=== PATIENT | male | born 1965 | race Caucasian/White ===

== ENCOUNTER 2017-03-13 14:36 | Outpatient (RCR) | payer OTHER ==
--- OUTSIDE RECORDS SUMMARY | 2016-12-19 08:34 | XMS REPORT | Continuity of Care Document ---
Author Author [facility] Organization [facility] Address Unknown Phone Unavailable Care Team Providers Care Front Desk Supervisor Name Role Phone SHANNON MACIAS MD PCP Insurance Providers Payer Name Policy Number Subscriber Name Relationship [employer] Harper Preferred [id number] Stas Mann 18 Self / Same As Patient Problems No problem information available. Medications No medication information available. Social History Social History Problem Response Recorded Date/Time Recent Foreign Travel No 01/06/2016 8:45am Hospital Discharge Instructions No hospital discharge instructions. Plan of Care Prescriptions See Medication Section Functional Status No functional status results. Allergies, Adverse Reactions, Alerts No allergy information available. Immunizations No immunization records. Vital Signs No known vital signs results. Results Microbiology Results Procedure Source Result Collection Date/Time Result Date/Time Anaerobic Culture Tissue, Back No anaerobes isolated 01/06/2016 9:25am 06/2016 10:31am Wound Culture Tissue, Back CORYNEBACTERIUM STRIATUM 01/06/2016 9:25am 01/14 2:28pm Procedures No known history of procedures. Encounters Encounter Location Arrival/Admit Date Discharge/Depart Date Attending Provider Discharged Recurring [facility] 03/30/16 8:44am 11:59pm NICHOL COTTER MD
== END 2017-03-19 | disposition home or self-care (01) ==
LOC: WOUNDCARE 14:36
PROVIDERS: ATTEND Surgery
DX: L98.492 Non-pressure chronic ulcer of skin of other sites with fat layer exposed (principal); E11.622 Type 2 diabetes mellitus with other skin ulcer; L59.9 Disorder of the skin and subcutaneous tissue related to radiation, unspecified; T66.XXXD Radiation sickness, unspecified, subsequent encounter
CPT/HCPCS: 11042; 15271; 87070; 87075; 87077; 87186; 87205; 99212

== ENCOUNTER 2017-05-01 12:30 | Outpatient (RCR) | payer OTHER | END 2017-05-01 16:00 | disposition home or self-care (01) | LOC: WOUNDCARE 12:30 | PROVIDERS: ATTEND Surgery | DX: L98.492 Non-pressure chronic ulcer of skin of other sites with fat layer exposed (principal); T66.XXXD Radiation sickness, unspecified, subsequent encounter | CPT/HCPCS: 11042; 99212 ==

== ENCOUNTER → 2020-01-03 | Outpatient (REF) ==
--- NOTE | 2020-01-03 13:19 | Diagnostic Imaging Report ---
EXAMINATION: Chest, PA and lateral views. INDICATION: Positive TB skin test. COMPARISON: None available. FINDINGS: The lungs are clear and the pulmonary vasculature is normal. No pneumothorax or pleural effusion. Heart size is normal. There is mild prominence along the right paratracheal stripe. Mediastinal contours are otherwise normal. There is mild tortuosity of the thoracic aorta. No acute osseous abnormality is identified. Multilevel degenerative changes involve the spine. IMPRESSION: No radiographic evidence of active tuberculosis. There is mild prominence along the right paratracheal stripe. This may be related to a prominent azygos vein or confluence of shadows and is difficult to assess for stability, without priors for comparison. This can be further evaluated with short interval follow-up or dedicated chest CT, as clinically indicated. Dictated by: Dictated on workstation # [id number]
== END | disposition home or self-care (01) ==
LOC: OCC 11:14
PROVIDERS: ATTEND Nurse Practitioner Family
CPT/HCPCS: 71046

== ENCOUNTER → 2020-12-24 | Outpatient (CLI) | payer BC | LOC: WOUNDCARE 10:06 | PROVIDERS: ATTEND Surgery | DX: L98.492 Non-pressure chronic ulcer of skin of other sites with fat layer exposed (principal); L59.9 Disorder of the skin and subcutaneous tissue related to radiation, unspecified; E11.622 Type 2 diabetes mellitus with other skin ulcer; T65.222D Toxic effect of tobacco cigarettes, intentional self-harm, subsequent encounter; T66.XXXD Radiation sickness, unspecified, subsequent encounter | CPT/HCPCS: A6197; G0463; 99213 ==

== ENCOUNTER → 2020-12-30 | Outpatient (CLI) | payer BC | LOC: WOUNDCARE 11:01 | PROVIDERS: ATTEND Surgery | DX: L98.492 Non-pressure chronic ulcer of skin of other sites with fat layer exposed (principal); I96 Gangrene, not elsewhere classified; L59.9 Disorder of the skin and subcutaneous tissue related to radiation, unspecified; E11.622 Type 2 diabetes mellitus with other skin ulcer; T65.222A Toxic effect of tobacco cigarettes, intentional self-harm, initial encounter | CPT/HCPCS: 99212 ==

== ENCOUNTER → 2021-01-06 | Outpatient (CLI) | payer BC | LOC: WOUNDCARE 10:58 | PROVIDERS: ATTEND Surgery | DX: L98.492 Non-pressure chronic ulcer of skin of other sites with fat layer exposed (principal); I96 Gangrene, not elsewhere classified; E11.622 Type 2 diabetes mellitus with other skin ulcer; T65.222D Toxic effect of tobacco cigarettes, intentional self-harm, subsequent encounter; T66.XXXD Radiation sickness, unspecified, subsequent encounter | CPT/HCPCS: 11042; G0463 ==

== ENCOUNTER → 2021-01-12 | Outpatient (CLI) | payer BC | LOC: WOUNDCARE 11:06 | PROVIDERS: ATTEND Surgery | DX: L98.492 Non-pressure chronic ulcer of skin of other sites with fat layer exposed (principal); I96 Gangrene, not elsewhere classified; E11.622 Type 2 diabetes mellitus with other skin ulcer; T65.222A Toxic effect of tobacco cigarettes, intentional self-harm, initial encounter; T66.XXXD Radiation sickness, unspecified, subsequent encounter | CPT/HCPCS: A6260; G0463; 99213 ==

== ENCOUNTER → 2021-01-20 | Outpatient (CLI) | payer BC | LOC: WOUNDCARE 09:59 | PROVIDERS: ATTEND Surgery | DX: L98.492 Non-pressure chronic ulcer of skin of other sites with fat layer exposed (principal); I96 Gangrene, not elsewhere classified; L59.9 Disorder of the skin and subcutaneous tissue related to radiation, unspecified; E11.622 Type 2 diabetes mellitus with other skin ulcer; T65.222D Toxic effect of tobacco cigarettes, intentional self-harm, subsequent encounter | CPT/HCPCS: 99212 ==

== ENCOUNTER → 2021-01-27 | Outpatient (CLI) | payer BC | LOC: WOUNDCARE 10:55 | PROVIDERS: ATTEND Surgery | DX: L98.492 Non-pressure chronic ulcer of skin of other sites with fat layer exposed (principal); E11.622 Type 2 diabetes mellitus with other skin ulcer; T65.222A Toxic effect of tobacco cigarettes, intentional self-harm, initial encounter; T66.XXXD Radiation sickness, unspecified, subsequent encounter | CPT/HCPCS: 99212 ==

== ENCOUNTER → 2021-02-03 | Outpatient (CLI) | payer BC | LOC: WOUNDCARE 11:05 | PROVIDERS: ATTEND Surgery | DX: L98.492 Non-pressure chronic ulcer of skin of other sites with fat layer exposed (principal); L59.9 Disorder of the skin and subcutaneous tissue related to radiation, unspecified; I96 Gangrene, not elsewhere classified; E11.622 Type 2 diabetes mellitus with other skin ulcer; T65.222D Toxic effect of tobacco cigarettes, intentional self-harm, subsequent encounter | CPT/HCPCS: 99213 ==

== ENCOUNTER → 2021-02-17 | Outpatient (CLI) | payer BC | LOC: WOUNDCARE 10:59 | PROVIDERS: ATTEND Surgery | DX: L98.492 Non-pressure chronic ulcer of skin of other sites with fat layer exposed (principal); I96 Gangrene, not elsewhere classified; T66.XXXD Radiation sickness, unspecified, subsequent encounter; E11.622 Type 2 diabetes mellitus with other skin ulcer; T65.222D Toxic effect of tobacco cigarettes, intentional self-harm, subsequent encounter | CPT/HCPCS: 97597; G0463 ==

== ENCOUNTER → 2021-02-24 | Outpatient (CLI) | payer BC | LOC: WOUNDCARE 11:02 | PROVIDERS: ATTEND Surgery | DX: L98.492 Non-pressure chronic ulcer of skin of other sites with fat layer exposed (principal); I96 Gangrene, not elsewhere classified; L59.9 Disorder of the skin and subcutaneous tissue related to radiation, unspecified; E11.622 Type 2 diabetes mellitus with other skin ulcer; T65.222D Toxic effect of tobacco cigarettes, intentional self-harm, subsequent encounter | CPT/HCPCS: 99213 ==

== ENCOUNTER → 2021-03-03 | Outpatient (CLI) | payer BC ==
[~2021-03-03] MED LIST: RT-ALBUTEROL SULF 2.5 MG/3 ML PRE-MIX VIAL INH ONE
[2021-03-03 12:25] LABS: BUN/CREATININE RATIO 19; GFR ESTIMATED > 60
[2021-03-03 13:19] LABS: ABG BASE EXCESS -1.6 MMOL/L (-2.5-2.5); ABG OXYGEN SATURATION 98 % (94-100); ABG PCO2 36 MMHG (35-45); ABG PH 7.41 (7.37-7.43); ABG PO2 91 MMHG (79-93); ABG TCO2 23.5 MMOL/L (21.0-31.0)
[2021-03-03 13:20] LABS: ALLENS TEST YES-POS; INSPIRED O2 ROOM AIR; PATIENT TEMP 36.7; VENTILATOR NO
--- NOTE | 2021-03-03 16:17 | Diagnostic Imaging Report ---
PROCEDURE: CT chest with contrast only. TECHNIQUE: Multiple contiguous axial images were obtained through the chest after administration of intravenous contrast. Auto Exposure Controls were utilized during the CT exam to meet ALARA standards for radiation dose reduction. INDICATION: Respiratory disorder and patient currently smoking The lungs appear clear without evidence of mass or infiltrate. There is no significant pleural or pericardial fluid. Coronary artery calcifications are noted. There is no evidence of pathologic adenopathy. Upper abdominal sections reveal no definite abnormality. Stomach is distended with particulate matter. IMPRESSION: Coronary artery disease without evidence of acute abnormality or suspicious masslike lesion in the thorax. Dictated by: Dictated on workstation # [id number]
== END ==
LOC: RT 11:12
PROVIDERS: ATTEND Nurse Practitioner Family
DX: Z13.83 Encounter for screening for respiratory disorder NEC (principal); I25.10 Atherosclerotic heart disease of native coronary artery without angina pectoris; F17.200 Nicotine dependence, unspecified, uncomplicated
CPT/HCPCS: 36415; 36600; 71260; 82565; 82805; 84520; 94060; 94726; 94729

== ENCOUNTER → 2021-03-17 | Outpatient (CLI) | payer BC | LOC: WOUNDCARE 13:13 | PROVIDERS: ATTEND Surgery | DX: L98.492 Non-pressure chronic ulcer of skin of other sites with fat layer exposed (principal); I96 Gangrene, not elsewhere classified; L59.9 Disorder of the skin and subcutaneous tissue related to radiation, unspecified; E11.622 Type 2 diabetes mellitus with other skin ulcer; T65.222A Toxic effect of tobacco cigarettes, intentional self-harm, initial encounter | CPT/HCPCS: A6212; G0463; 99212 ==

== ENCOUNTER → 2021-03-29 | Outpatient (CLI) | payer BC | LOC: LABNPT 07:14 | PROVIDERS: ATTEND Nurse Practitioner Family | DX: Z20.822 Contact with and (suspected) exposure to COVID-19 (principal) | CPT/HCPCS: 87635 ==

== ENCOUNTER 2021-03-30 21:05 | Outpatient (CLI) | payer BC | END 2021-03-31 07:11 | disposition home or self-care (01) | LOC: SLEEP 21:05 | PROVIDERS: ATTEND Nurse Practitioner Family | DX: G47.33 Obstructive sleep apnea (adult) (pediatric) (principal); G47.10 Hypersomnia, unspecified; G47.50 Parasomnia, unspecified; G47.30 Sleep apnea, unspecified | CPT/HCPCS: 95811 ==

== ENCOUNTER → 2021-03-31 | Outpatient (CLI) | payer BC | LOC: WOUNDCARE 15:30 | PROVIDERS: ATTEND Surgery | DX: L94.2 Calcinosis cutis (principal); L98.492 Non-pressure chronic ulcer of skin of other sites with fat layer exposed; L59.9 Disorder of the skin and subcutaneous tissue related to radiation, unspecified; T66.XXXD Radiation sickness, unspecified, subsequent encounter; E11.622 Type 2 diabetes mellitus with other skin ulcer; T65.222D Toxic effect of tobacco cigarettes, intentional self-harm, subsequent encounter; E11.52 Type 2 diabetes mellitus with diabetic peripheral angiopathy with gangrene; F17.218 Nicotine dependence, cigarettes, with other nicotine-induced disorders | CPT/HCPCS: 11042; G0463 ==

== ENCOUNTER → 2021-04-21 | Outpatient (CLI) | payer BC | LOC: WOUNDCARE 13:10 | PROVIDERS: ATTEND Surgery | DX: L94.2 Calcinosis cutis (principal); I96 Gangrene, not elsewhere classified; L98.492 Non-pressure chronic ulcer of skin of other sites with fat layer exposed; L59.9 Disorder of the skin and subcutaneous tissue related to radiation, unspecified; E11.622 Type 2 diabetes mellitus with other skin ulcer; T65.222D Toxic effect of tobacco cigarettes, intentional self-harm, subsequent encounter; F17.218 Nicotine dependence, cigarettes, with other nicotine-induced disorders | CPT/HCPCS: 99213 ==

== ENCOUNTER → 2021-05-12 | Outpatient (CLI) | payer BC | LOC: WOUNDCARE 13:19 | PROVIDERS: ATTEND Surgery | DX: L94.2 Calcinosis cutis (principal); I96 Gangrene, not elsewhere classified; L98.492 Non-pressure chronic ulcer of skin of other sites with fat layer exposed; L59.9 Disorder of the skin and subcutaneous tissue related to radiation, unspecified; E11.622 Type 2 diabetes mellitus with other skin ulcer; T65.222D Toxic effect of tobacco cigarettes, intentional self-harm, subsequent encounter; F17.218 Nicotine dependence, cigarettes, with other nicotine-induced disorders | CPT/HCPCS: 99212 ==

== ENCOUNTER → 2021-05-31 | Outpatient (CLI) | payer BC | LOC: CARD 12:32 | PROVIDERS: ATTEND Internal Medicine Cardiovascular Disease | DX: I11.9 Hypertensive heart disease without heart failure (principal); I25.10 Atherosclerotic heart disease of native coronary artery without angina pectoris | CPT/HCPCS: 93306 ==

== ENCOUNTER → 2021-06-02 | Outpatient (CLI) | payer BC | LOC: WOUNDCARE 13:12 | PROVIDERS: ATTEND Surgery | DX: L98.492 Non-pressure chronic ulcer of skin of other sites with fat layer exposed (principal); L59.9 Disorder of the skin and subcutaneous tissue related to radiation, unspecified; E11.622 Type 2 diabetes mellitus with other skin ulcer; L94.2 Calcinosis cutis; T65.222D Toxic effect of tobacco cigarettes, intentional self-harm, subsequent encounter; E11.52 Type 2 diabetes mellitus with diabetic peripheral angiopathy with gangrene; F17.218 Nicotine dependence, cigarettes, with other nicotine-induced disorders | CPT/HCPCS: 99212 ==

== ENCOUNTER → 2021-06-23 | Outpatient (CLI) | payer BC | LOC: WOUNDCARE 13:16 | PROVIDERS: ATTEND Surgery | DX: L98.492 Non-pressure chronic ulcer of skin of other sites with fat layer exposed (principal); I96 Gangrene, not elsewhere classified; L59.9 Disorder of the skin and subcutaneous tissue related to radiation, unspecified; E11.622 Type 2 diabetes mellitus with other skin ulcer; L94.2 Calcinosis cutis; T65.222D Toxic effect of tobacco cigarettes, intentional self-harm, subsequent encounter; F17.218 Nicotine dependence, cigarettes, with other nicotine-induced disorders | CPT/HCPCS: 99213 ==

== ENCOUNTER → 2021-06-30 | Outpatient (CLI) | payer BC ==
[~2021-06-30] VITALS: Ht 177 cm; Wt 132.0 kg
[~2021-06-30] MED LIST changes: +REGADENOSON 0.4 MG/5 ML SYR (LEXISCAN) IV ONE; -RT-ALBUTEROL SULF 2.5 MG/3 ML PRE-MIX VIAL INH ONE
[2021-06-30] MEDS: CATHETER FLUSH 10 ML SYR IV PRN ×2 (12:19→13:09)
[2021-06-30 13:03] VITALS: BP 171/96
--- NOTE | 2021-06-30 15:08 | Cardiology Stress Test Report ---
Stress Test Report Date of Procedure/Referring: Date of Procedure: Jun 30, 2021 PCP Shilo Maher MD Admitting Physician Juan Rust MD Indications: HTN Baseline Heart Rate: 72 Baseline Blood Pressure: Blood Pressure Systolic: 171 Blood Pressure Diastolic: 96 Baseline Vitals Vital Signs Date Time Temp Pulse Resp B/P (MAP) Pulse Ox O2 Delivery O2 Flow Rate FiO2 06/30/21 13:03 72 14 171/96 (121) 98 Room Air Baseline EKG: Baseline EKG: NSR Summary After explaining the procedure to the patient, he signed a consent and then brought to the stress nuclear laboratory. Patient received 0.4 mg Lexiscan for stress test, ECG, heart rate and blood pressure were monitored continuously. Resting and stress dose of radio tracer were injected, imaging was acquired and reviewed in short axis, horizontal long axis and vertical long axis views. TID: 1.19 SSS: 12 SDS: 6 EF: 51 1. Patient tolerated Lexiscan well 2. Diaphragmatic attenuation affecting the quality of the images, there is decreased uptake involving the whole inferior wall and inferoposterior wall and inferoapex with mild reversibility 3. Normal left ventricular size, EF 51% SHILO MAHER MD Jun 30, 2021 15:08
== END ==
LOC: CARD 12:05
PROVIDERS: ATTEND Internal Medicine Cardiovascular Disease
DX: I10 Essential (primary) hypertension (principal); I25.10 Atherosclerotic heart disease of native coronary artery without angina pectoris
CPT/HCPCS: 78452; 93017; A9502

== ENCOUNTER → 2021-07-14 | Outpatient (CLI) | payer BC | LOC: WOUNDCARE 13:15 | PROVIDERS: ATTEND Surgery | DX: L98.492 Non-pressure chronic ulcer of skin of other sites with fat layer exposed (principal); L59.9 Disorder of the skin and subcutaneous tissue related to radiation, unspecified; E11.622 Type 2 diabetes mellitus with other skin ulcer; E11.52 Type 2 diabetes mellitus with diabetic peripheral angiopathy with gangrene; L94.2 Calcinosis cutis; T65.222D Toxic effect of tobacco cigarettes, intentional self-harm, subsequent encounter; F17.218 Nicotine dependence, cigarettes, with other nicotine-induced disorders | CPT/HCPCS: 99213 ==

== ENCOUNTER 2021-07-23 06:53 | Day surgery (SDC) | payer BC ==
[~2021-07-23] VITALS: Ht 180.3 cm; Wt 130.5 kg
[2021-07-23] MEDS ORDERED: NS IV 1000 ML 1,000 ML IV SCH ×2 (07:00→10:30)
[2021-07-23] MEDS ORDERED: NS IV 1000 ML 1,000 ML ONE (07:02)
[2021-07-23] MEDS ORDERED: LIDOCAINE 1% INJ 20 ML 20 ML VIAL ONE (07:02)
[2021-07-23] MEDS ORDERED: HEParin (CATH LAB) 2,000 ML IV ONE (07:02)
[2021-07-23 07:12] LABS: HEMATOCRIT 52 % (40-54); MEAN CORPUSCULAR HEMOGLOBIN 30 pg (25-34); MEAN CORPUSCULAR HGB CONC 33 g/dL (32-36); MEAN CORPUSCULAR VOLUME 91 fL (80-99); PLATELET COUNT 203 10^3/uL (130-400); WHITE BLOOD COUNT 7.3 10^3/uL (4.3-11.0)
[2021-07-23 07:13] LABS: BILIRUBIN,URINE NEGATIVE (NEGATIVE); CLARITY,URINE CLEAR; COLOR,URINE YELLOW; GLUCOSE, URINE (UA) 3+ (NEGATIVE); KETONES,URINE 1+ (NEGATIVE); LEUKOCYTE ESTERASE ,URINE NEGATIVE (NEGATIVE); NITRITE,URINE NEGATIVE (NEGATIVE); PH,URINE 5.5 (5-9); PROTEIN,URINE NEGATIVE (NEGATIVE)
[2021-07-23 07:26] LABS: BACTERIA,URINE NEGATIVE /HPF; RBC,URINE RARE /HPF
[2021-07-23 07:36] LABS: INR 0.9 (0.8-1.4); PROTHROMBIN TIME PATIENT 12.9 SEC (12.2-14.7)
[2021-07-23 07:39] LABS: ALBUMIN 4.3 GM/DL (3.2-4.5); BILIRUBIN,TOTAL 0.7 MG/DL (0.1-1.0); CALCIUM 9.3 MG/DL (8.5-10.1); CREATININE SERUM 0.75 MG/DL (0.60-1.30); TOTAL PROTEIN 6.9 GM/DL (6.4-8.2)
[2021-07-23 07:45] VITALS: BP 134/81
[2021-07-23] MEDS ORDERED: METF-399 PO ×2 (08:03→15:51)
[2021-07-23] MEDS ORDERED: DEXT10TA9 PO (08:03)
[2021-07-23] MEDS ORDERED: MODA200T39 PO (08:03)
[2021-07-23] MEDS ORDERED: EMPA25TA PO (08:03)
[2021-07-23] MEDS ORDERED: OMEGA 3 PO (08:03)
[2021-07-23] MEDS ORDERED: DULA1.5P2 SQ (08:03)
[2021-07-23] MEDS ORDERED: NITR0.4T42 SL (08:03)
[2021-07-23] MEDS ORDERED: QUIN20TA16 PO (08:03)
[2021-07-23] MEDS ORDERED: ATOR80TA76 PO (08:03)
[2021-07-23] MEDS ORDERED: RT-ALBUINH IH (08:03)
[2021-07-23] MEDS ORDERED: ASPI-808 PO (08:03)
[2021-07-23] MEDS ORDERED: CARV25TA PO (08:03)
[2021-07-23] MEDS ORDERED: SPIR25TA5 PO (08:03)
--- NOTE | 2021-07-23 08:04 | Diagnostic Imaging Report ---
EXAMINATION: Chest 1 view HISTORY: Abnormal stress test. COMPARISON: 03/03/2021. FINDINGS: The lung volumes are normal. No focal consolidation is seen. No large pleural effusion or pneumothorax is seen. The cardiomediastinal silhouette is normal in size and contour. There is calcified aortic atherosclerotic plaque. No acute osseous abnormality is seen. IMPRESSION: 1. No acute pleuroparenchymal process. Dictated by: Dictated on workstation # [id number]
[2021-07-23] MEDS ORDERED: fentaNYL INJ 100 MCG/2 ML AMP ONE (09:20)
[2021-07-23] MEDS ORDERED: HEParin 1000 UNIT/ML (10ML VIAL) FOR BOLUS ONE (09:20)
[2021-07-23] MEDS ORDERED: MIDAZOLAM 5 MG/5 ML (VERSED) VIAL ONE (09:20)
[2021-07-23] MEDS ORDERED: VERAPAMIL 5 MG/2 ML (CALAN) VIAL IV ONE ×2 (09:20→09:52)
--- NOTE | 2021-07-23 09:20 | Conscious Sedation/ASA ---
Conscious Sedation Pre-Proced Time 09:20 ASA Score 3 For ASA 3 and 4: Consider anesthesia and medical clearance. Also, for patients with a history of failed moderate sedation consider anesthesia. Airway Lungs Heart ASA score ASA 1: a normal healthy patient ASA 2: a patient with a mild systemic disease (mid diabetes, controlled hypertension, obesity x ASA 3: a patient with a severe systemic disease that limits activity (angina, COPD, prior Myocardial infarction) ASA 4: a patient with an incapacitating disease that is a constant threat to life (CHF, renal failure) ASA 5: a moribund patient not expected to survive 24 hrs. (ruptured aneurysm) ASA 6: a declared brain- patient whose organs are being harvested. For emergent operations, add the letter E after the classification Mallampati Classification Grade 3 Sedation Plan Analgesia, Amnesia, Plan communicated to team members, Discussed options with patient/fam, Discussed risks with patient/fam The patient is an appropriate candidate to undergo the planned procedure, sedation, and anesthesia. The patient immediately re-assessed prior to indication. SHILO POLLARD MD Jul 23, 2021 09:20
[2021-07-23] MEDS ORDERED: NITRO DRIP 25000 MCG/D5W 250 ML IV ONE (09:21)
[2021-07-23] MEDS ORDERED: CLOPIDOGREL 300 MG (PLAVIX) TABLET PO ONE (10:29)
[2021-07-23] MEDS ORDERED: ASPIRIN 325 MG (5 GR) TABLET ONE (10:29)
[2021-07-23] MEDS ORDERED: NON-FORMULARY MEDICATION 1 EA EA (Dulaglutide (Trulicity) 1.5 MG) SQ SCH (10:30)
[2021-07-23] MEDS ORDERED: NITROGLYCERIN 0.4 MG SL TABS BTL 25'S SL SCH (10:30)
--- NOTE | 2021-07-23 10:37 | Cardiac Cath Report ---
Cardiac Cath Report Physician (s)/Coordinator Of Evaluation (s) Physician SHILO POLLARD MD Pre-Procedure Diagnosis Pre-Procedure Diagnosis: Coronary artery disease Post-Procedure Note Procedure Start Date: Jul 23, 2021 Name of Procedure: Left heart catheterization Stenting to the LAD Findings/Procedure Note PROCEDURE NOTE: 56 years old gentleman with history of coronary artery disease, known to have occluded circumflex artery with failed attempt for intervention resulted in radiation injury to the patient. The procedure was done at [facility]. Had an abnormal stress test, scheduled for cardiac catheterization possible PTCA After explaining the procedure to the patient, all pros and cons were explained, all questions were answered. The patient signed the consent and then he was placed on the cardiac catheterization laboratory. Groin was prepped SL fashion local anesthesia was used. Sheath placed in the right radial artery, [place] catheter was advanced to the left ventricular cavity, pressure was measured, pullback LV to aorta was done. Engaged the right and left coronary system, angiogram was done. Patient was noted to have 2 severe lesions in the LAD at the mid and distal portion, the distal portion is fairly small artery deemed not amendable to intervention I decided to proceed with intervention on the mid LAD lesion. Patient received a total of 6000 units of heparin, EBU 3.5 guide was used to advance to the left coronary system then BMW wire was advanced and parked distally. I did multiple attempt to advance 3.5 stent through the mid lesion without any success I continue to lose the position I try to advance the diet with then the left main into the LAD without success subsequently I remove the stent and proceeded with balloon dilatation using 3 x 20 trek balloon with multiple inflation then I was able to advance the stent I used Nuvia 3.5 x 23 mm stent expanded to 3.7 mm, angiogram showed excellent results. At the end of the procedure the sheath was removed. Vascular band deployed FINDINGS: Hemodynamics LV 103/12, end-diastolic pressure of 12 Aorta 101/71 mean of 84 ANATOMY: Left Main is free of obstructive disease Left Anterior Descending is moderate in size with severe stenosis at the midportion, subtotal occlusion distally. The mid lesion had a complex intervention with deployment of Nuvia 3.5 x 23 mm stent expanded to 3.7 mm with excellent results. The distal lesion in the LAD was treated medically to to the size of the artery, the distal area is about 1.5 mm in diameter. Left Circumflex is totally occluded receiving collaterals from the right coronary system Right Coronary Artery has diffuse ectasia in the proximal and midportion with slow flow distally LV Gram was not done, pressure was measured CONCLUSION: 1. Severe stenosis in the mid LAD with successful stenting using Nuvia 3.5 x 23 mm expanded to 3.7 mm with excellent results. 2. Severe stenosis at the distal LAD, subtotal occlusion, the artery is very small artery about 1.5 mm, treated medically 3. Diffuse ectasia in the proximal and mid right coronary artery with small vessel disease and slow flow distally 4. 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 Continue to maximize medical therapy and monitor tolerance and response Anesthesia Type: Conscious Sedation Estimated blood loss (mL): 20 ml Contrast Amount: 84 ml Total Radiation Dose: 1708 mGy Post-Procedure Diagnosis Post-operative diagnosis: Chest pain Coronary artery disease Hypertension Hyperlipidemia SHILO POLLARD MD Jul 23, 2021 10:37
[2021-07-23 12:29] VITALS: BP 123/63
[2021-07-23] MEDS ORDERED: CLOP75TA28 PO (15:51)
[2021-07-23] MEDS ORDERED: ASPI-1238 PO (15:51)
--- NOTE | 2021-07-23 15:52 | Discharge Inst-Post CATH ---
Discharge Inst-CATH/EP Problems Reviewed?: Yes Post Cardiac Cath/EP D/C Inst Follow Up/Plan Hold Metformin for [address] Maher's office in 2 to 4 weeks <b>CARDIAC CATH/EP PROCEDURE DISCHARGE INSTRUCTIONS</b> ACTIVITY * Go Home directly and rest. * Limit activity of the leg (or wrist if it was used) for 7 days including aerobics, swimming, jogging, bicycling, etc. * Restrict stair-climbing for 7 days if possible, if not, climb up with your non-cath leg, then bring together on the same step. * Avoid lifting, pushing, pulling or excessive movement of the affected extremity for 7 days. * Customary sexual activity may be resumed after 2 days-use caution not to use a position that strains or causes pain to the affected extremity. * No driving for 24 hours. * NO SMOKING. * Avoid straining for bowel movements for 7 days. * Gentle walking on level ground is allowed. * Returning to work will depend on the type of procedure and the results. Your doctor will discuss this with you. CALL YOUR DOCTOR FOR ANY OF THE FOLLOWING: *If bleeding from the puncture site occurs- Apply gentle pressure to site with clean cloth and call your doctor or EMS. * If a knot or lump forms under the skin, increases in size, or causes pain. * If bruising appears to be worsening or moving further down your leg instead of disappearing. * Temperature above 101 F. CARE OF YOUR GROIN INCISION; * Bruising or purple discoloration of the skin near the puncture site is common. * You may shower only, no bathtub bathing for 5 days. Be careful to avoid slipping as your leg may feel stiff. * If a closure device was used on your femoral artery, please see the attached guide regarding care of the device and your leg. * Leave dressing on FOR 24 hours. CARE OF YOUR WRIST INCISION; * Bruising or purple discoloration of the skin near the puncture site is common. * You may shower. * DO NOT submerge wrist. * Leave dressing on FOR 24 hours. SHILO MAHER MD Jul 23, 2021 15:52
[2021-07-23 16:13] VITALS: BP 145/71
[2021-07-24] MEDS ORDERED: OMEGA 3 (FISH OIL) 1000 MG CAP PO SCH (07:00)
[2021-07-24] MEDS ORDERED: MODAFINIL 100 MG TAB (PROVIGIL) NON-FORMULARY PO SCH (09:00)
[2021-07-24] MEDS ORDERED: lisINopril 20 MG (PRINIVIL) TABLET PO SCH (09:00)
[2021-07-24] MEDS ORDERED: SPIRONOLACTONE 25 MG (ALDACTONE) TAB PO SCH (09:00)
[2021-07-24] MEDS ORDERED: DEXTROAMPHETAMINE PO SCH (09:00)
[2021-07-24] MEDS ORDERED: [UNRECOGNIZED DRUG - OTHER] PO SCH (09:00)
[2021-07-24] MEDS ORDERED: NON-FORMULARY MEDICATION 1 EA EA (Empagliflozin (Jardiance) 25 MG) PO SCH (09:00)
[2021-07-24] MEDS ORDERED: MODAFINIL 200 MG PO SCH (09:00)
[2021-07-24] MEDS ORDERED: ASPIRIN E.C. 81 MG (ECOTRIN) TAB PO SCH (09:00)
[2021-07-24] MEDS ORDERED: CLOPIDOGREL 75 MG (PLAVIX) TABLET PO SCH (09:00)
[2021-07-24] MEDS ORDERED: AMPHETAMINE PO SCH (09:00)
== END 2021-07-23 18:08 | disposition home or self-care (01) ==
LOC: CATH 06:53 → CSD 10:51 → CATH 18:08
PROVIDERS: ATTEND Internal Medicine Cardiovascular Disease
DX: I25.10 Atherosclerotic heart disease of native coronary artery without angina pectoris (principal); I10 Essential (primary) hypertension; E78.2 Mixed hyperlipidemia; E11.9 Type 2 diabetes mellitus without complications; I25.2 Old myocardial infarction; Z91.048 Other nonmedicinal substance allergy status; Z79.899 Other long term (current) drug therapy; Z79.82 Long term (current) use of aspirin; Z79.84 Long term (current) use of oral hypoglycemic drugs; Z87.891 Personal history of nicotine dependence
CPT/HCPCS: 71045; 80053; 80061; 81000; 85027; 85610; 85730; 87081; 93458; C1725; C1769; C1874; C1887; C1894; C9600; 36415

== ENCOUNTER → 2021-08-04 | Outpatient (CLI) | payer BC ==
[~2021-08-04] MED LIST changes: +ASPI-1238 PO; +ASPI-808 PO; +ATOR80TA76 PO; +CARV25TA PO; +CLOP75TA28 PO; +DEXT10TA9 PO; +DULA1.5P2 SQ; +EMPA25TA PO; +METF-399 PO; +MODA200T39 PO; +NITR0.4T42 SL; +OMEGA 3 PO; +QUIN20TA16 PO; -REGADENOSON 0.4 MG/5 ML SYR (LEXISCAN) IV ONE; +RT-ALBUINH IH; +SPIR25TA5 PO
== END ==
LOC: WOUNDCARE 13:11
PROVIDERS: ATTEND Family Medicine
DX: L98.492 Non-pressure chronic ulcer of skin of other sites with fat layer exposed (principal); L59.9 Disorder of the skin and subcutaneous tissue related to radiation, unspecified; E11.622 Type 2 diabetes mellitus with other skin ulcer; L94.2 Calcinosis cutis; T65.222D Toxic effect of tobacco cigarettes, intentional self-harm, subsequent encounter; E11.52 Type 2 diabetes mellitus with diabetic peripheral angiopathy with gangrene; F17.218 Nicotine dependence, cigarettes, with other nicotine-induced disorders
CPT/HCPCS: 99213

== ENCOUNTER → 2021-08-25 | Outpatient (CLI) | payer BC | LOC: WOUNDCARE 15:16 | PROVIDERS: ATTEND Family Medicine | DX: L98.492 Non-pressure chronic ulcer of skin of other sites with fat layer exposed (principal); I96 Gangrene, not elsewhere classified; T66.XXXD Radiation sickness, unspecified, subsequent encounter; E11.622 Type 2 diabetes mellitus with other skin ulcer; L94.2 Calcinosis cutis; T65.222D Toxic effect of tobacco cigarettes, intentional self-harm, subsequent encounter; F17.218 Nicotine dependence, cigarettes, with other nicotine-induced disorders | CPT/HCPCS: 99213 ==

== ENCOUNTER → 2021-09-15 | Outpatient (CLI) | payer BC | LOC: WOUNDCARE 13:15 | PROVIDERS: ATTEND Family Medicine | DX: L98.492 Non-pressure chronic ulcer of skin of other sites with fat layer exposed (principal); L59.9 Disorder of the skin and subcutaneous tissue related to radiation, unspecified; E11.622 Type 2 diabetes mellitus with other skin ulcer; E11.52 Type 2 diabetes mellitus with diabetic peripheral angiopathy with gangrene; L94.2 Calcinosis cutis; T65.222D Toxic effect of tobacco cigarettes, intentional self-harm, subsequent encounter; F17.218 Nicotine dependence, cigarettes, with other nicotine-induced disorders | CPT/HCPCS: 99213 ==

== ENCOUNTER → 2021-10-06 | Outpatient (CLI) | payer BC | LOC: WOUNDCARE 13:16 | PROVIDERS: ATTEND Family Medicine | DX: L98.492 Non-pressure chronic ulcer of skin of other sites with fat layer exposed (principal); L59.9 Disorder of the skin and subcutaneous tissue related to radiation, unspecified; T66.XXXD Radiation sickness, unspecified, subsequent encounter; E11.622 Type 2 diabetes mellitus with other skin ulcer; L94.2 Calcinosis cutis; E11.52 Type 2 diabetes mellitus with diabetic peripheral angiopathy with gangrene | CPT/HCPCS: A6212; G0463; 99213 ==

== ENCOUNTER → 2021-10-27 | Outpatient (CLI) | payer BC | LOC: WOUNDCARE 13:13 | PROVIDERS: ATTEND Family Medicine | DX: I96 Gangrene, not elsewhere classified (principal); E11.622 Type 2 diabetes mellitus with other skin ulcer; L98.492 Non-pressure chronic ulcer of skin of other sites with fat layer exposed; L94.2 Calcinosis cutis; T66.XXXD Radiation sickness, unspecified, subsequent encounter | CPT/HCPCS: A6212; G0463; 99212 ==

== ENCOUNTER → 2021-11-17 | Outpatient (CLI) | payer BC | LOC: WOUNDCARE 13:16 | PROVIDERS: ATTEND Family Medicine | DX: L98.492 Non-pressure chronic ulcer of skin of other sites with fat layer exposed (principal); L59.9 Disorder of the skin and subcutaneous tissue related to radiation, unspecified; T66.XXXD Radiation sickness, unspecified, subsequent encounter; E11.622 Type 2 diabetes mellitus with other skin ulcer; L94.2 Calcinosis cutis; E11.52 Type 2 diabetes mellitus with diabetic peripheral angiopathy with gangrene | CPT/HCPCS: A6212; G0463; 99212 ==

== ENCOUNTER → 2021-12-08 | Outpatient (CLI) | payer BC | LOC: WOUNDCARE 15:16 | PROVIDERS: ATTEND Family Medicine | DX: L98.492 Non-pressure chronic ulcer of skin of other sites with fat layer exposed (principal); T66.XXXD Radiation sickness, unspecified, subsequent encounter; E11.622 Type 2 diabetes mellitus with other skin ulcer | CPT/HCPCS: A6212; G0463; 99212 ==

== ENCOUNTER → 2021-12-29 | Outpatient (CLI) | payer BC | LOC: WOUNDCARE 13:16 | PROVIDERS: ATTEND Family Medicine | DX: L98.492 Non-pressure chronic ulcer of skin of other sites with fat layer exposed (principal); T66.XXXD Radiation sickness, unspecified, subsequent encounter; E11.622 Type 2 diabetes mellitus with other skin ulcer; L94.2 Calcinosis cutis; E11.52 Type 2 diabetes mellitus with diabetic peripheral angiopathy with gangrene | CPT/HCPCS: A6212; G0463; 99212 ==

== ENCOUNTER → 2022-01-19 | Outpatient (CLI) | payer BC | LOC: WOUNDCARE 15:33 | PROVIDERS: ATTEND Family Medicine | DX: E11.621 Type 2 diabetes mellitus with foot ulcer (principal); L98.492 Non-pressure chronic ulcer of skin of other sites with fat layer exposed; L59.9 Disorder of the skin and subcutaneous tissue related to radiation, unspecified; L94.2 Calcinosis cutis; E11.52 Type 2 diabetes mellitus with diabetic peripheral angiopathy with gangrene; I96 Gangrene, not elsewhere classified | CPT/HCPCS: 99213 ==

== ENCOUNTER → 2022-02-09 | Outpatient (CLI) | payer BC | LOC: WOUNDCARE 13:12 | PROVIDERS: ATTEND Family Medicine | DX: L98.492 Non-pressure chronic ulcer of skin of other sites with fat layer exposed (principal); T66.XXXD Radiation sickness, unspecified, subsequent encounter; E11.622 Type 2 diabetes mellitus with other skin ulcer; L94.2 Calcinosis cutis; E11.52 Type 2 diabetes mellitus with diabetic peripheral angiopathy with gangrene; I96 Gangrene, not elsewhere classified | CPT/HCPCS: A6212; G0463; 99212 ==

== ENCOUNTER → 2022-03-02 | Outpatient (CLI) | payer BC ==
[~2022-03-02] MED LIST changes: -QUIN20TA16 PO; +QUIN20TA36 PO
== END ==
LOC: WOUNDCARE 13:20
PROVIDERS: ATTEND Family Medicine
DX: L98.492 Non-pressure chronic ulcer of skin of other sites with fat layer exposed (principal); T66.XXXD Radiation sickness, unspecified, subsequent encounter; E11.622 Type 2 diabetes mellitus with other skin ulcer; L94.2 Calcinosis cutis
CPT/HCPCS: 99211

== ENCOUNTER → 2022-09-16 | Outpatient (CLI) | payer BC ==
[~2022-09-16] MED LIST changes: +ALBU8.5H6 IH; -RT-ALBUINH IH
--- NOTE | 2022-09-16 15:29 | Diagnostic Imaging Report ---
CT Lung Screening INDICATION: 30 pack year smoking history, recent cessation TECHNIQUE: Noncontrast, low-dose CT imaging performed according to the lung cancer screening protocol. Auto Exposure Controls were utilize during the CT exam to meet ALARA standards for radiation dose reduction. COMPARISON: Routine dose CT chest 03/03/2021 FINDINGS: No lung mass or suspicious pulmonary nodule. No pneumonia or edema. Heavy coronary artery calcifications of the left main and 3 major vessels again noted, some of this density may be stenting. The aorta shows mild calcified plaque at its arch, nonaneurysmal no pleural or pericardial effusion. No adenopathy. IMPRESSION:No lung mass. Continued annual low-dose CT screening follow-up in one year's time recommended, LUNG-RADS CATEGORY:Category 1 MODIFIER:None OTHER SIGNIFICANT FINDINGS:Coronary artery atherosclerotic vascular calcifications. Dictated by: Dictated on workstation # [id number]
== END ==
LOC: RAD 13:34
PROVIDERS: ATTEND Family Medicine
DX: Z12.2 Encounter for screening for malignant neoplasm of respiratory organs (principal); Z87.891 Personal history of nicotine dependence
CPT/HCPCS: 71271

== ENCOUNTER 2023-07-19 06:03 | Outpatient (CLI) | payer BC ==
[~2023-07-19] VITALS: Ht 180.3 cm; Wt 135.0 kg
== END 2023-07-19 11:41 | disposition home or self-care (01) ==
LOC: PREOP 06:03
PROVIDERS: ATTEND Surgery
DX: Z01.818 Encounter for other preprocedural examination (principal)

== ENCOUNTER 2023-07-31 07:16 | Day surgery (SDC) | payer BC ==
[~2023-07-31] VITALS: Ht 180.3 cm; Wt 135.0 kg
[2023-07-31] MEDS ORDERED: LACTATED RINGERS 1,000 ML 1,000 ML IV STA (07:20)
[2023-07-31] MEDS ORDERED: MIDAZOLAM INJ 2 MG/2 ML VIAL ONE (07:32)
--- NOTE | 2023-07-31 07:42 | Progress Note-Pre Operative ---
Pre-Operative Progress Note Date H&P Reviewed: Jul 31, 2023 Time H&P Reviewed: 07:31 History & Physical: H&P Reviewed, Patient Examed, No changes noted Pre-Operative Diagnosis: hx polyps PATSY RACHEL DO Jul 31, 2023 07:42
[2023-07-31 07:43] VITALS: BP 112/69
[2023-07-31 08:17] VITALS: BP 87/53
[2023-07-31 08:20] VITALS: BP 92/52
[2023-07-31 09:18] VITALS: BP 107/59
--- NOTE | 2023-07-31 10:41 | Anesthesia-General Post-Op ---
MAC Patient Condition Mental Status/LOC: Same as Preop Cardiovascular: Satisfactory Nausea/Vomiting: Absent Respiratory: Satisfactory Pain: Controlled Complications: Absent Post Op Complications Complications None Follow Up Care/Instructions Patient Instructions None needed. Anesthesiology Discharge Order Discharge Order Patient is doing well, no complaints, stable vital signs, no apparent adverse anesthesia problems. No complications reported per nursing. BRIANNA ROMAN CRNA Jul 31, 2023 10:41
--- NOTE | 2023-07-31 18:50 | OPERATIVE REPORT ---
DATE OF SERVICE: 07/31/2023 PREOPERATIVE DIAGNOSIS: History of polyps. POSTOPERATIVE DIAGNOSES: Colon polyps, diverticulosis. PROCEDURE: Colonoscopy with hot biopsy polypectomy x2. SURGEON: Patsy Trejo DO ANESTHESIA: Per CORK MOLDER. ESTIMATED BLOOD LOSS: None. COMPLICATIONS: None. INDICATIONS: The patient is a 58-year-old male, needing screening colonoscopy. He understands risks and benefits of procedure and wished to proceed. Consent was signed in chart. DESCRIPTION OF PROCEDURE: The patient was taken to endoscopy suite, placed in left lateral recumbent position. Timeout was performed. Digital rectal exam was performed. No palpable polyps, masses or ulcerations. Scope was inserted in the rectum, advanced all the way to the cecum with minimal difficulty. Prep was adequate with irrigation and suction. No polyps, masses or ulcerations in the cecum. In the ascending colon, a small polyp was present, which hot biopsy polypectomy was performed. Scope was then continuously retracted back. No polyps, masses or ulcerations in the remainder of the ascending, transverse and descending colon. The sigmoid colon had a slightly larger polyp present, which hot biopsy polypectomy was performed. Scope was then continuously retracted back into the rectum. In the left colon, we did note diverticulosis present. Once in the rectum, scope was retroflexed, noting no other pathology. Scope was returned to its normal position, slowly withdrawn until completely removed. The patient tolerated the procedure well without complications, taken to recovery room in stable condition. RECOMMENDATIONS: We would recommend repeat colonoscopy in 3 years for reevaluation. Any issues before that, he will be seen at that time. The patient will follow up on pathology in a couple of weeks. Job ID: [id number] DocumentID: [id number] Dictated Date: 07/31/2023 10:26:22 Utility Locator Date: 07/31/2023 18:49:00 Dictated By: PATSY TREJO DO
== END 2023-07-31 09:18 | disposition home or self-care (01) ==
LOC: ENDO 07:16
PROVIDERS: ATTEND Surgery
DX: Z12.11 Encounter for screening for malignant neoplasm of colon (principal); D12.2 Benign neoplasm of ascending colon; D12.5 Benign neoplasm of sigmoid colon; K57.30 Diverticulosis of large intestine without perforation or abscess without bleeding; G47.33 Obstructive sleep apnea (adult) (pediatric); E66.9 Obesity, unspecified; Z95.5 Presence of coronary angioplasty implant and graft; Z87.891 Personal history of nicotine dependence; Z79.02 Long term (current) use of antithrombotics/antiplatelets; Z68.41 Body mass index [BMI] 40.0-44.9, adult

== ENCOUNTER 2023-08-06 17:20 | Observation (INO) | payer BC ==
[~2023-08-06] VITALS: Ht 178 cm; Wt 122.7 kg
[2023-08-06] VITALS (7 sets, daily range): BP systolic 104–163; BP diastolic 46–86
[2023-08-06] MEDS ORDERED: NS IV 1000 ML 1,000 ML IV SCH (18:00)
--- NOTE | 2023-08-06 18:04 | ED GI ---
General Stated Complaint: CONTINUED BLEEDING AFTER COLONOSCOPY Source of Information: Patient, Old Records History of Present Illness Date Seen by Provider: Aug 06, 2023 Time Seen by Provider: 17:50 Initial Comments PT ARRIVES VIA POV-[facility] HERE FROM [place] C/O RECTAL BLEEDING PT HAD ROUTINE COLONOSCOPY AND 2 POLYPS WERE REMOVED ON Monday07/31/[address] RACHEL PT RESTARTED HIS ASPIRIN AND PLAVIX ON Monday08/03/23 LAST NIGHT/EARLY THIS AM AROUND 0100, HE HAD A BM--FIST PART WAS FORMED, THEN AT THE END IT WAS LIQUID / BLOODY WITH CLOTS HE HAD 2 BM'S TODAY AT 1300 AND 1600 AND THEY WERE ALSO LIQUID/GROSSLY BLOODY WITH CLOTS HAS GENERALIZED ABDOMINAL "DISCOMFORT", STATES IT IS NOT REALLY ABDOMINAL PAIN OR CRAMPING, JUST IS "DISCOMFORT" + NAUSEA, NO VOMITING NO FEVER, BUT HAS HAD SWEATS STATES ON THE WAY HERE, HE STARTED COUGHING AND GOT DIZZY, BUT OTHERWISE NO DIZZINESS NO SYNCOPE HE HAS BEEN EATING AND DRINKING NORMALLY, LAST ATE AROUND 1530--SANDWICH NO BLEEDING FROM OTHER SITES OR EXCESSIVE BRUISING, NO RASHES OR PETECHIAE NO HISTORY OF GI PROBLEMS PT HAS HTN, CAD WITH STENT PLACED 07/2021, AND NIDDM HE HAS HAD APPENDECTOMY, AND HAS HAD COLONOSCOPY IN THE PAST WITHOUT PROBLEMS. HE SMOKES 1 PPD, OCCASIONAL ETOH, NO DRUG USE BROTHER RECENTLY--INCREASED STRESS. ALSO GOING ON A TRIP TOMORROW AND IS SOMEWHAT ANXIOUS ABOUT THAT. PCP: DR. MCCONNELL, CANTONMENT Allergies and Home Medications Allergies Coded Allergies: adhesive tape (Unverified Allergy, Mild, 03/03/21) turns red Patient Home Medication List Albuterol Sulfate (Ventolin Hfa) 1 Puff Puff, 2 PUFF IH Q4-6HRS, (Reported) Entered as Reported by: STELLA BRONSON on 07/23/21 0803 Aspirin (Aspirin EC) 81 Mg Tablet., 81 MG PO DAILY Prescribed by: SHILO POLLARD on 07/23/21 1551 Atorvastatin Calcium (Atorvastatin Calcium) 80 Mg Tablet, 80 MG PO DAILY, (Reported) Entered as Reported by: STELLA BRONSON on 07/23/21 0803 Carvedilol (Carvedilol) 25 Mg Tablet, 25 MG PO BID, (Reported) Entered as Reported by: STELLA BRONSON on 07/23/21802 Clopidogrel Bisulfate (Clopidogrel) 75 Mg Tablet, 75 MG PO DAILY Prescribed by: SHILO POLLARD on 07/23/211550 Dextroamphetamine/Amphetamine (Adderall 10 mg Tablet) 10 Mg Tablet, 10 MG PO DAILY, (Reported) Entered as Reported by: STELLA BRONSON on 07/23/21802 Dulaglutide (Trulicity) 1.5 Mg/0.5 Ml Pen.injctr, 1.5 MG SQ WEEK, (Reported) Entered as Reported by: STELLA BRONSON on 07/23/21802 Empagliflozin (Jardiance) 25 Mg Tablet, 25 MG PO DAILY, (Reported) Entered as Reported by: STELLA BRONSON on 07/23/21802 Metformin HCl (Metformin HCl) 1,000 Mg Tablet, 1,000 MG PO BID Prescribed by: SHILO POLLARD on 07/23/211550 Modafinil (Modafinil) 200 Mg Tablet, 200 MG PO DAILY, (Reported) Entered as Reported by: STELLA BRONSON on 07/23/21802 Nitroglycerin (Nitroglycerin) 0.4 Mg Tab.subl, 0.4 MG SL PRN, (Reported) Entered as Reported by: STELLA BRONSON on 07/23/21802 Quinapril HCl (Quinapril HCl) 20 Mg Tablet, 20 MG PO DAILY, (Reported) Entered as Reported by: STELLA BRONSON on 07/23/21802 Spironolactone (Spironolactone) 25 Mg Tablet, 25 MG PO DAILY, (Reported) Entered as Reported by: STELLA BRONSON on 07/23/21802 [Donner 3 ] , 4 GM PO DAILY, (Reported) Entered as Reported by: STELLA BRONSON on 07/23/21802 Review of Systems Review of Systems Constitutional: see HPI EENTM: No Symptoms Reported Respiratory: No Symptoms Reported Cardiovascular: No Symptoms Reported Gastrointestinal: See HPI Genitourinary: No Symptoms Reported Musculoskeletal: no symptoms reported Skin: no symptoms reported Psychiatric/Neurological: No Symptoms Reported Endocrine: No Symptoms Reported Hematologic/Lymphatic: See HPI Past Rblqgev-Nmrvoz-Whfrak Hx Patient Social History Tobacco Use?: Yes Tobacco type used: Cigarettes Smoking Status: Current Everyday Smoker Use of E-Cig and/or Vaping Sergio: Unknown if Ever Used Alcohol Use?: Yes Alcohol Frequency: Once in a while Past Medical History Surgeries: Yes Appendectomy, Cardiac, Coronary Stent Respiratory: Yes Sleep Apnea, COPD Currently Using CPAP: Yes Cardiac: Yes (CHRONIC TOTAL OCCLUSION OF CIRC; CARDIAC CATHS; CAD WITH STENT 07/2021) Coronary Artery Disease, Heart Attack, High Cholesterol, Hypertension Neurological: No Genitourinary: No Gastrointestinal: Yes Polyps Musculoskeletal: No Endocrine: Yes (OBESITY) Diabetes, Non-Insulin dep HEENT: No (GLASSES) Cancer: No Psychosocial: No Integumentary: No Blood Disorders: No Physical Exam Vital Signs Vital Signs - First Documented 08/06/23 17:48 Temp 36.6 Pulse 95 Resp 16 B/P (MAP) 144/86 (105) Pulse Ox 97 O2 Delivery Room Air Capillary Refill : Height/Weight/BMI Height: '" Weight: lbs. oz. kg; 41.52 BMI Method: General Appearance: WD/WN, no apparent distress, obese Progress/Results/Core Measures Results/Orders Lab Results Laboratory Tests Test 08/06/23 17:58 08/06/23 18:08 Range/Units White Blood Count 8.3 4.3-11.0 10^3/uL Red Blood Count 5.37 4.30-5.52 10^6/uL Hemoglobin 15.3 13.3-17.7 g/dL Hematocrit 46 40-54 % Mean Corpuscular Volume 86 80-99 fL Mean Corpuscular Hemoglobin 29 25-34 pg Mean Corpuscular Hemoglobin Concent 33 32-36 g/dL Red Cell Distribution Width 14.8 H 10.0-14.5 % Platelet Count 225 130-400 10^3/uL Mean Platelet Volume 10.4 9.0-12.2 fL Immature Granulocyte % (Auto) 1 % Neutrophils (%) (Auto) 68 42-75 % Lymphocytes (%) (Auto) 20 12-44 % Monocytes (%) (Auto) 8 0-12 % Eosinophils (%) (Auto) 2 0-10 % Basophils (%) (Auto) 1 0-10 % Neutrophils # (Auto) 5.6 1.8-7.8 10^3/uL Lymphocytes # (Auto) 1.7 1.0-4.0 10^3/uL Monocytes # (Auto) 0.7 0.0-1.0 10^3/uL Eosinophils # (Auto) 0.2 0.0-0.3 10^3/uL Basophils # (Auto) 0.1 0.0-0.1 10^3/uL Immature Granulocyte # (Auto) 0.1 0.0-0.1 10^3/uL Prothrombin Time 13.2 12.2-14.7 SEC INR Comment 1.0 0.8-1.4 Activated Partial Thromboplast Time 25 24-35 SEC Sodium Level 136 135-145 MMOL/L Potassium Level 4.0 3.6-5.0 MMOL/L Chloride Level 105 98-107 MMOL/L Carbon Dioxide Level 17 L 21-32 MMOL/L Anion Gap 14 5-14 MMOL/L Blood Urea Nitrogen 23 H 7-18 MG/DL Creatinine 0.88 0.60-1.30 MG/DL Estimat Glomerular Filtration Rate 100 BUN/Creatinine Ratio 26 Glucose Level 190 H 70-105 MG/DL Calcium Level 9.3 8.5-10.1 MG/DL Corrected Calcium 9.0 8.5-10.1 MG/DL Magnesium Level 1.9 1.6-2.4 MG/DL Total Bilirubin < 0.1 L 0.1-1.0 MG/DL Aspartate Amino Transf (AST/SGOT) 14 5-34 U/L Alanine Aminotransferase (ALT/SGPT) 21 0-55 U/L Alkaline Phosphatase 45 40-136 U/L Total Protein 6.8 6.4-8.2 GM/DL Albumin 4.4 3.2-4.5 GM/DL Urine Color YELLOW Urine Clarity CLEAR Urine pH 5.0 5-9 Urine Specific [place] 1.015 L 1.016-1.022 Urine Protein NEGATIVE NEGATIVE Urine Glucose (UA) 3+ H NEGATIVE Urine Ketones 1+ H NEGATIVE Urine Nitrite NEGATIVE NEGATIVE Urine Bilirubin NEGATIVE NEGATIVE Urine Urobilinogen 0.2 < = 1.0 MG/DL Urine Leukocyte Esterase NEGATIVE NEGATIVE Urine RBC (Auto) TRACE H NEGATIVE Urine RBC NONE /HPF Urine WBC NONE /HPF Urine Squamous Epithelial Cells RARE /HPF Urine Crystals NONE /LPF Urine Bacteria NEGATIVE /HPF Urine Casts NONE /LPF Urine Mucus NEGATIVE /LPF Urine Culture Indicated NO My Orders Orders - RADHA WELLS DO Ed Iv/Invasive Line Start (08/06/23 17:58) Monitor-Rhythm Ecg Trace Only (08/06/23 17:58) Ed Iv/Invasive Line Start (08/06/23 17:58) Ns Iv 1000 Ml (Ns Iv 1000 Ml) (08/06/23 18:00) Cbc And Automated Diff (08/06/23 17:58) Comprehensive Metabolic Panel (08/06/23 17:58) Magnesium (08/06/23 17:58) Protime With Inr (08/06/23 17:58) Partial Thromboplastin Time (08/06/23 17:58) Type And Screen (08/06/23 17:58) Ua Culture If Indicated (08/06/23 18:04) Ct Abdomen/Pelvis W (08/06/23 18:39) Iohexol Injection (Omnipaque 350 Mg/Ml 1 (08/06/23 19:00) Ns (Ivpb) 100 Ml (Sodium Chloride 0.9% 1 (08/06/23 19:00) Medications Given in ED Current Medications Medications Dose Ordered Sig/Sarah Route Start Time Stop Time Status Last Admin Dose Admin Iohexol 100 ml ONCE ONCE IV 08/06/23 19:00 08/06/23 19:01 DC 08/06/23 19:44 100 ML Sodium Chloride 100 ml ONCE ONCE IV 08/06/23 19:00 08/06/23 19:01 DC 08/06/23 19:44 80 ML Vital Signs/I&O 08/06/23 17:48 Temp 36.6 Pulse 95 Resp 16 B/P (MAP) 144/86 (105) Pulse Ox 97 O2 Delivery Room Air Diagnostic Imaging Comments CT ABDOMEN/PELVIS--PER RADIOLOGIST REPORT AT 2019 FINDINGS: Lung bases: The lung bases are clear. Solid organs: The liver is normal without focal lesion. The gallbladder is normal. There is no biliary ductal dilation. Pancreas is normal. There is a small indeterminate left adrenal nodule measuring 1.3 cm. Right adrenal gland is unremarkable. Spleen is unremarkable. The kidneys are normal without hydronephrosis. Bowel: The stomach and small bowel are normal without obstruction. There is scattered colonic diverticulosis. The colon is otherwise unremarkable without evidence of significant blood products or hemorrhage. There are no secondary signs of acute appendicitis. Peritoneum: There is no intraperitoneal free fluid or free air. No suspicious lymphadenopathy. Vasculature: Calcification of the aorta without aneurysm. Musculoskeletal: Degenerative changes of the spine without suspicious osseous lesion or compression fracture. Pelvis: The prostate gland is normal. The urinary bladder is normal. IMPRESSION: 1. No acute abnormality in the abdomen or pelvis. 2. A 1.3 cm indeterminate left adrenal nodule could be followed with a dedicated CT abdomen adrenal mass protocol in the nonemergent setting. Reviewed: Reviewed by Me Departure Departure-Patient Inst. Referrals: SELF,KEITH BENNETT (PCP/Family) Primary Care Physician RADHA WELLS DO Aug 06, 2023 18:04
[2023-08-06 18:07] LABS: BASOPHILS # (AUTO) 0.1 10^3/uL (0.0-0.1); BASOPHILS % (AUTO) 1 % (0-10); EOSINOPHILS # (AUTO) 0.2 10^3/uL (0.0-0.3); EOSINOPHILS % (AUTO) 2 % (0-10); HEMATOCRIT 46 % (40-54); HEMOGLOBIN 15.3 g/dL (13.3-17.7); LYMPHOCYTES # (AUTO) 1.7 10^3/uL (1.0-4.0); LYMPHOCYTES % (AUTO) 20 % (12-44); MEAN CORPUSCULAR HEMOGLOBIN 29 pg (25-34); MEAN CORPUSCULAR HGB CONC 33 g/dL (32-36); MEAN CORPUSCULAR VOLUME 86 fL (80-99); MEAN PLATELET VOLUME 10.4 fL (9.0-12.2); MONOCYTES # (AUTO) 0.7 10^3/uL (0.0-1.0); MONOCYTES % (AUTO) 8 % (0-12); NEUTROPHILS # (AUTO) 5.6 10^3/uL (1.8-7.8); NEUTROPHILS % (AUTO) 68 % (42-75); PLATELET COUNT 225 10^3/uL (130-400); WHITE BLOOD COUNT 8.3 10^3/uL (4.3-11.0)
[2023-08-06 18:25] LABS: ALBUMIN 4.4 GM/DL (3.2-4.5); CHLORIDE 105 MMOL/L (98-107); SODIUM 136 MMOL/L (135-145)
[2023-08-06 18:27] LABS: CALCIUM 9.3 MG/DL (8.5-10.1)
[2023-08-06 18:28] LABS: GLUCOSE 190 MG/DL (70-105); TOTAL PROTEIN 6.8 GM/DL (6.4-8.2)
[2023-08-06 18:29] LABS: BILIRUBIN,TOTAL < 0.1 MG/DL (0.1-1.0); CARBON DIOXIDE 17 MMOL/L (21-32)
[2023-08-06 18:31] LABS: ALKALINE PHOSPHATASE 45 U/L (40-136); CREATININE SERUM 0.88 MG/DL (0.60-1.30); GFR ESTIMATED 100; PROTHROMBIN TIME PATIENT 13.2 SEC (12.2-14.7)
[2023-08-06 18:32] LABS: BUN/CREATININE RATIO 26
[2023-08-06 18:34] LABS: ALANINE AMINOTRANSFERASE 21 U/L (0-55); MAGNESIUM 1.9 MG/DL (1.6-2.4)
[2023-08-06 18:47] LABS: CLARITY,URINE CLEAR; COLOR,URINE YELLOW; PROTEIN,URINE NEGATIVE (NEGATIVE)
[2023-08-06 18:48] LABS: BACTERIA,URINE NEGATIVE /HPF; BILIRUBIN,URINE NEGATIVE (NEGATIVE); GLUCOSE, URINE (UA) 3+ (NEGATIVE); KETONES,URINE 1+ (NEGATIVE); LEUKOCYTE ESTERASE ,URINE NEGATIVE (NEGATIVE); NITRITE,URINE NEGATIVE (NEGATIVE); SQUAMOUS EPITHELIAL CELL,UR RARE /HPF
[2023-08-06] MEDS ORDERED: NS 100 ML (IVPB) BAG IV ONE (19:00)
[2023-08-06] MEDS ORDERED: IOHEXOL 350 MG/ML 100 ML (OMNIPAQUE 350) VIAL IV ONE (19:00)
--- NOTE | 2023-08-06 20:14 | Diagnostic Imaging Report ---
EXAMINATION: CT abdomen and pelvis with intravenous contrast. TECHNIQUE: Multiple contiguous axial images were obtained through the abdomen and pelvis after the uneventful administration of intravenous contrast. All CT scans use one or more of the following dose optimizing techniques: automated exposure control, MA and/or KvP adjustment based on patient size and exam type or iterative reconstruction. HISTORY: Rectal bleeding. COMPARISON: None available. FINDINGS: Lung bases: The lung bases are clear. Solid organs: The liver is normal without focal lesion. The gallbladder is normal. There is no biliary ductal dilation. Pancreas is normal. There is a small indeterminate left adrenal nodule measuring 1.3 cm. Right adrenal gland is unremarkable. Spleen is unremarkable. The kidneys are normal without hydronephrosis. Bowel: The stomach and small bowel are normal without obstruction. There is scattered colonic diverticulosis. The colon is otherwise unremarkable without evidence of significant blood products or hemorrhage. There are no secondary signs of acute appendicitis. Peritoneum: There is no intraperitoneal free fluid or free air. No suspicious lymphadenopathy. Vasculature: Calcification of the aorta without aneurysm. Musculoskeletal: Degenerative changes of the spine without suspicious osseous lesion or compression fracture. Pelvis: The prostate gland is normal. The urinary bladder is normal. IMPRESSION: 1. No acute abnormality in the abdomen or pelvis. 2. A 1.3 cm indeterminate left adrenal nodule could be followed with a dedicated CT abdomen adrenal mass protocol in the nonemergent setting. Dictated by: Dictated on workstation # [id number]
[2023-08-06] MEDS ORDERED: ACETAMINOPHEN 325 MG TABLET PO PRN (22:30)
[2023-08-06] MEDS ORDERED: ONDANSETRON 4 MG ORAL DISSOLVE TABLET PO PRN (22:30)
[2023-08-06] MEDS ORDERED: oxyCODONE IMMEDIATE RELEASE 5 MG TABLET PO PRN (22:30)
[2023-08-06] MEDS ORDERED: BISACODYL 10 MG SUPPOSITORY PR PRN (22:30)
[2023-08-06] MEDS ORDERED: ONDANSETRON INJECTION 4 MG/2 ML (SDV) IV PRN (22:30)
[2023-08-06] MEDS ORDERED: MILK OF MAGNESIA 400 MG/5 ML 30 ML UDC PO PRN (22:30)
[2023-08-06] MEDS ORDERED: ANTACID SUSPENSION 30 ML UDC PO PRN (22:30)
[2023-08-06] MEDS ORDERED: diphenhydrAMINE INJ 50 MG/ML VIAL IVP PRN (22:30)
[2023-08-06] MEDS ORDERED: ALPRAZolam 0.5 MG TABLET PO PRN (22:30)
[2023-08-06] MEDS ORDERED: hydrALAZINE INJECTION 20 MG/ML VIAL IV PRN (22:30)
[2023-08-06] MEDS ORDERED: MELATONIN 3 MG TABLET PO PRN (22:30)
[2023-08-06] MEDS ORDERED: HYDROmorphone INJECTION 2 MG/ML VIAL IV PRN (22:30)
[2023-08-06] MEDS ORDERED: LACTULOSE SYRUP 10GM/15ML 30ML UDC PO PRN (22:30)
[2023-08-06] MEDS ORDERED: CALCIUM CARBONATE 500 MG CHEW TABLET PO PRN (22:30)
[2023-08-06] MEDS ORDERED: diphenhydrAMINE 25 MG TABLET PO PRN (22:30)
[2023-08-06] MEDS ORDERED: RT-ALBUTEROL SULF 2.5 MG/3 ML PRE-MIX VIAL INH PRN (23:00)
[2023-08-06] MEDS: NS IV 1000 ML 1,000 ML IV SCH (23:16)
[2023-08-07] VITALS (7 sets, daily range): BP systolic 112–165; BP diastolic 68–94
[2023-08-07 04:58] LABS: BASOPHILS % (AUTO) 1 % (0-10); EOSINOPHILS # (AUTO) 0.2 10^3/uL (0.0-0.3); EOSINOPHILS % (AUTO) 3 % (0-10); HEMATOCRIT 42 % (40-54); HEMOGLOBIN 13.4 g/dL (13.3-17.7); LYMPHOCYTES # (AUTO) 1.6 10^3/uL (1.0-4.0); LYMPHOCYTES % (AUTO) 22 % (12-44); MEAN CORPUSCULAR HEMOGLOBIN 28 pg (25-34); MEAN CORPUSCULAR HGB CONC 32 g/dL (32-36); MEAN CORPUSCULAR VOLUME 87 fL (80-99); MEAN PLATELET VOLUME 10.4 fL (9.0-12.2); MONOCYTES # (AUTO) 0.8 10^3/uL (0.0-1.0); MONOCYTES % (AUTO) 11 % (0-12); NEUTROPHILS # (AUTO) 4.5 10^3/uL (1.8-7.8); NEUTROPHILS % (AUTO) 62 % (42-75); PLATELET COUNT 189 10^3/uL (130-400); WHITE BLOOD COUNT 7.2 10^3/uL (4.3-11.0)
[2023-08-07 05:35] LABS: ALBUMIN 3.8 GM/DL (3.2-4.5)
[2023-08-07 05:36] LABS: POTASSIUM 3.9 MMOL/L (3.6-5.0)
[2023-08-07 05:37] LABS: CALCIUM 8.4 MG/DL (8.5-10.1)
[2023-08-07 05:38] LABS: TOTAL PROTEIN 5.8 GM/DL (6.4-8.2)
[2023-08-07 05:40] LABS: BILIRUBIN,TOTAL 0.7 MG/DL (0.1-1.0)
[2023-08-07 05:42] LABS: CREATININE SERUM 0.79 MG/DL (0.60-1.30)
[2023-08-07] MEDS: inSUlin ASPART 1 UNIT/0.01 ML (PER UNIT) SC SCH ×4 (06:07→21:46)
[2023-08-07] MEDS: DOCUSATE SODIUM 100 MG CAPSULE PO SCH ×2 (08:02→20:40)
[2023-08-07] MEDS: SENNOSIDES 8.6 MG TABLET PO SCH ×2 (08:02→20:40)
--- NOTE | 2023-08-07 09:35 | History & Physical-Surgical ---
History of Present Illness History of Present Illness Patient Consulted On(derek/time) 08/07/23 09:35 Date Seen by Provider: Aug 07, 2023 Time Seen by Provider: 10:30 Reason for Visit: Post-colonoscopy Bright Red Blood per rectum History of Present Illness This is a 58 yo male that presents with bloody diarrhea post-op day 6 colonoscopy with polypectomy x2. Colonoscopy was performed on 07/31/23 and 2 polyps were found and biopsied. Pt states that he started Plavix and Aspirin on 08/03. On 08/06, pt noted that BM was "initially formed that finished as liquid with blood". AT 1300 and 1600 on 08/06, patient had BMs that were diarrhea mixed with blood and "blood clots". Pt has had no pain with BMs and has continued to have loose, diarrhea like stools with blood mixed in. Pt has had associated nausea and sweating, but denies vomiting. Denies fever, chest pain, cough, SOA, abdominal pain, dysuria, back pain. Consult requested by Dr. Schroeder. Patient is a 58 year old male post colonoscopy 6 days. Had polypectomy x 2. Restarted Plavix and aspirin 08/03 and began having some bloody bowel movements on 08/06. Passing blood and blood clots. No abdominal pain. Some nausea and sweating. Allergies and Home Medications Allergies Coded Allergies: adhesive tape (Unverified Allergy, Mild, 03/03/21) turns red Patient Home Medication List Home Medication List Reviewed: Yes Acetaminophen (Tylenol Extra Strength) 500 Mg Tablet, 1,000 MG PO Q8H PRN for PAIN-MILD (1-4), (Reported) Entered as Reported by: ELIZABETH FERNANDEZ on 08/07/23 1136 Last Action: Continued Aspirin (Aspirin EC) 81 Mg Tablet., 81 MG PO DAILY Prescribed by: LUCY SCHROEDER on 08/08/23 1233 Atorvastatin Calcium (Atorvastatin Calcium) 80 Mg Tablet, 80 MG PO HS, (Reported) Entered as Reported by: STELLA BRONSON on 07/23/21 0803 Last Action: Continued Carvedilol (Carvedilol) 25 Mg Tablet, 25 MG PO BID, (Reported) Entered as Reported by: STELLA BRONSON on 07/23/21802 Last Action: Converted Clopidogrel Bisulfate (Clopidogrel) 75 Mg Tablet, 75 MG PO DAILY Prescribed by: LUCY SCHROEDER on 08/08/23 1233 Dextroamphetamine/Amphetamine (Amphetamine Salts 10 mg Tablet) 10 Mg Tablet, 10 MG PO 0900,1300, (Reported) Entered as Reported by: ELIZABETH FERNANDEZ on 08/07/231135 Last Action: Converted Dulaglutide (Trulicity) 1.5 Mg/0.5 Ml Pen.injctr, 1.5 MG SQ SUN, (Reported) Entered as Reported by: STELLA BRONSON on 07/23/21802 Last Action: Converted Empagliflozin (Jardiance) 25 Mg Tablet, 25 MG PO DAILY, (Reported) Entered as Reported by: STELLA BRONSON on 07/23/21802 Last Action: Converted Lisinopril (Lisinopril) 20 Mg Tablet, 20 MG PO HS, (Reported) Entered as Reported by: ELIZABETH FERNANDEZ on 08/07/231135 Last Action: Continued Metformin HCl (Metformin HCl) 1,000 Mg Tablet, 1,000 MG PO BID, (Reported) Entered as Reported by: ELIZABETH FERNANDEZ on 08/07/231135 Last Action: Converted Modafinil (Modafinil) 200 Mg Tablet, 200 MG PO DAILY, (Reported) Entered as Reported by: STELLA BRONSON on 07/23/21802 Last Action: Converted Nitroglycerin (Nitroglycerin) 0.4 Mg Tab.subl, 0.4 MG SL UD PRN for CHEST PAIN, (Reported) Entered as Reported by: ELIZABETH FERNANDEZ on 08/07/231135 Last Action: Continued Morral-3 Acid Ethyl Esters (Lovaza) 1 Gram Capsule, 2 GM PO BID, (Reported) Entered as Reported by: ELIZABETH FERNANDEZ on 08/07/231135 Last Action: Continued Pantoprazole Sodium (Pantoprazole Sodium) 40 Mg Tablet.dr, 40 MG PO DAILY, (Reported) Entered as Reported by: ELIZABETH FERNANDEZ on 08/07/231135 Last Action: Continued Spironolactone (Spironolactone) 25 Mg Tablet, 25 MG PO DAILY, (Reported) Entered as Reported by: STELLA BRONSON on 07/23/21802 Last Action: Continued Discontinued Medications Albuterol Sulfate (Ventolin Hfa) 1 Puff Puff, 2 PUFF IH Q4-6HRS, (Reported) Discontinued Reason: No Longer Taking Entered as Reported by: STELLA BRONSON on 07/23/21802 Last Action: Discontinued Aspirin (Aspirin EC) 81 Mg Tablet.dr, 81 MG PO DAILY Discontinued Reason: No Longer Taking Prescribed by: SHILO POLLARD on 07/23/211550 Last Action: Discontinued Clopidogrel Bisulfate (Clopidogrel) 75 Mg Tablet, 75 MG PO DAILY Discontinued Reason: No Longer Taking Prescribed by: SHILO POLLARD on 07/23/211550 Last Action: Discontinued Dextroamphetamine/Amphetamine (Adderall 10 mg Tablet) 10 Mg Tablet, 10 MG PO DAILY, (Reported) Discontinued Reason: No Longer Taking Entered as Reported by: STELLA BRONSON on 07/23/21802 Last Action: Discontinued Metformin HCl (Metformin HCl) 1,000 Mg Tablet, 1,000 MG PO BID Discontinued Reason: No Longer Taking Prescribed by: SHILO POLLARD on 07/23/211550 Last Action: Discontinued Nitroglycerin (Nitroglycerin) 0.4 Mg Tab.subl, 0.4 MG SL PRN, (Reported) Discontinued Reason: No Longer Taking Entered as Reported by: STELLA BRONSON on 07/23/21802 Last Action: Discontinued Quinapril HCl (Quinapril HCl) 20 Mg Tablet, 20 MG PO DAILY, (Reported) Discontinued Reason: No Longer Taking Entered as Reported by: STELLA BRONSON on 07/23/21802 Last Action: Discontinued [Morral 3 ] , 4 GM PO DAILY, (Reported) Discontinued Reason: No Longer Taking Entered as Reported by: STELLA BRONSON on 07/23/21802 Last Action: Discontinued Past Omwyreo-Ttiepa-Myndbj Hx Patient Social History Smoking Status: Current Everyday Smoker Alcohol Use?: No Surgeries History of Surgeries: Yes Surgeries: Appendectomy, Cardiac, Coronary Stent Respiratory History of Respiratory Disorde: Yes Respiratory Disorders: Sleep Apnea, COPD Cardiovascular History of Cardiac Disorders: Yes (CHRONIC TOTAL OCCLUSION OF CIRC; CARDIAC CATHS; CAD WITH STENT 07/2021) Cardiac Disorders: Coronary Artery Disease, Heart Attack, High Cholesterol, Hypertension Neurological History of Neurological Disord: No Genitourinary History of Genitourinary Disor: No Gastrointestinal History of Gastrointestinal Di: Yes Gastrointestinal Disorders: Polyps Musculoskeletal History of Musculoskeletal Dis: No Endocrine History of Endocrine Disorders: Yes (OBESITY) Endocrine Disorders: Diabetes, Non-Insulin dep HEENT History of HEENT Disorders: No (GLASSES) Cancer History of Cancer: No Psychosocial History of Psychiatric Problem: No Integumentary History of Skin or Integumenta: No Blood Transfusions History of Blood Disorders: No Reviewed Nursing Assessment Reviewed/Agree w Nursing PMH: Yes Family Medical History Significant Family History: No Pertinent Family Hx Review of Systems-General Constitutional: No chills; diaphoresis EENTM: No blurred vision, No double vision, No nose congestion, No throat pain Respiratory: No cough, No dyspnea on exertion, No short of breath Cardiovascular: No chest pain, No palpitations Gastrointestinal: No abdominal pain, No constipation; melena, nausea; No vomiting Genitourinary: No decreased output, No discharge, No dysuria Musculoskeletal: No back pain, No joint pain, No muscle pain Skin: No change in color, No change in hair/nails, No dryness, No rash Psychiatric/Neurological: Denies Anxiety, Denies Depressed, Denies Emotional Problems, Denies Headache, Denies Numbness All Other Systems Reviewed Negative Unless Noted: Yes (Negative excepted noted.) Physical Exam-General Problems Physical Exam Vital Signs Vital Signs - First Documented 08/06/23 08/06/23 17:48 22:44 Temp 36.6 Pulse 95 Resp 16 B/P (MAP) 144/86 (105) Pulse Ox 97 O2 Delivery Room Air FiO2 21 Capillary Refill : Less Than 3 Seconds General Appearance: WD/WN, no apparent distress HEENT: PERRL/EOMI, pharynx normal (no erythema or exudates.) Neck: non-tender, full range of motion, supple Respiratory: chest non-tender, no respiratory distress, no accessory muscle use Cardiovascular: normal peripheral pulses (radialis, carotid, and posterior tibialis), regular rate, rhythm, no murmur Gastrointestinal: non tender, soft, no organomegaly, abnormal bowel sounds (hyperactive) Rectal: deferred (at this time) Back: normal inspection, no CVA tenderness Extremities: non-tender, normal inspection Neurologic/Psychiatric: no motor/sensory deficits, alert, normal mood/affect, oriented x 3 Skin: normal color, warm/dry Lymphatic: no adenopathy Data Review Labs Laboratory Tests 08/06/23 17:58: White Blood Count 8.3, Red Blood Count 5.37, Hemoglobin 15.3, Hematocrit 46, Mean Corpuscular Volume 86, Mean Corpuscular Hemoglobin 29, Mean Corpuscular Hemoglobin Concent 33, Red Cell Distribution Width 14.8H, Platelet Count 225, Mean Platelet Volume 10.4, Immature Granulocyte % (Auto) 1, Neutrophils (%) (Auto) 68, Lymphocytes (%) (Auto) 20, Monocytes (%) (Auto) 8, Eosinophils (%) (Auto) 2, Basophils (%) (Auto) 1, Neutrophils # (Auto) 5.6, Lymphocytes # (Auto) 1.7, Monocytes # (Auto) 0.7, Eosinophils # (Auto) 0.2, Basophils # (Auto) 0.1, Immature Granulocyte # (Auto) 0.1, Prothrombin Time 13.2, INR Comment 1.0, Activated Partial Thromboplast Time 25, Sodium Level 136, Potassium Level 4.0, Chloride Level 105, Carbon Dioxide Level 17L, Anion Gap 14, Blood Urea Nitrogen 23H, Creatinine 0.88, Estimat Glomerular Filtration Rate 100, BUN/Creatinine Ratio 26, Glucose Level 190H, Calcium Level 9.3, Corrected Calcium 9.0, Ma gnesium Level 1.9, Total Bilirubin < 0.1L, Aspartate Amino Transf (AST/SGOT) 14, Alanine Aminotransferase (ALT/SGPT) 21, Alkaline Phosphatase 45, Total Protein 6.8, Albumin 4.4 08/06/23 18:08: Urine Color YELLOW, Urine Clarity CLEAR, Urine pH 5.0, Urine Specific [place] 1.015L, Urine Protein NEGATIVE, Urine Glucose (UA) 3+H, Urine Ketones 1+H, Urine Nitrite NEGATIVE, Urine Bilirubin NEGATIVE, Urine Urobilinogen 0.2, Urine Leukocyte Esterase NEGATIVE, Urine RBC (Auto) TRACEH, Urine RBC NONE, Urine WBC NONE, Urine Squamous Epithelial Cells RARE, Urine Crystals NONE, Urine Bacteria NEGATIVE, Urine Casts NONE, Urine Mucus NEGATIVE, Urine Culture Indicated NO 08/07/23 04:25: White Blood Count 7.2, Red Blood Count 4.80, Hemoglobin 13.4, Hematocrit 42, Mean Corpuscular Volume 87, Mean Corpuscular Hemoglobin 28, Mean Corpuscular Hemoglobin Concent 32, Red Cell Distribution Width 14.8H, Platelet Count 189, Mean Platelet Volume 10.4, Immature Granulocyte % (Auto) 1, Neutrophils (%) (Auto) 62, Lymphocytes (%) (Auto) 22, Monocytes (%) (Auto) 11, Eosinophils (%) (Auto) 3, Basophils (%) (Auto) 1, Neutrophils # (Auto) 4.5, Lymphocytes # (Auto) 1.6, Monocytes # (Auto) 0.8, Eosinophils # (Auto) 0.2, Basophils # (Auto) 0.0, Immature Granulocyte # (Auto) 0.1, Sodium Level 136, Potassium Level 3.9, Chloride Level 105, Carbon Dioxide Level 19L, Anion Gap 12, Blood Urea Nitrogen 18, Creatinine 0.79, Estimat Glomerular Filtration Rate 103, BUN/Creatinine Ratio 23, Glucose Level 117H, Calcium Level 8.4L, Corrected Calcium 8.6, Total Bilirubin 0.7, Aspartate Amino Transf (AST/SGOT) 12, Alanine Aminotransferase (ALT/SGPT) 16, Alkaline Phosphatase 37L, Total Protein 5.8L, Albumin 3.8 Assessment/Plan Assessment/Plan Admission Diagonsis Lower gi bleed Post polypectomy bleed press tender long goods antiplatelet Admission Status: Observation Assessment/Plan Lower gi bleed Post polypectomy bleed usp antiplatelet Hold Plavix/ASA May need to give platelets Fluid Resuscitation Monitor Hgb- Currently 13.4 down from 15.3 yesterday Consider colonoscopy if Hgb continues to drop significantly Supervisory-Addendum Brief Verification & Attestation Participated in pt care: history, MDM, physical Personally performed: exam, history, MDM, supervision of care Care discussed with: Medical Student Procedures: n/a Results interpretation: Verified all documentation Verification and Attestation of Medical Student E/M Service A medical student performed and documented this service in my presence. I reviewed and verified all information documented by the medical student and made modifications to such information, when appropriate. I personally performed the physical exam and medical decision making. Patsy Rachel, Aug 07, 2023,21:04 BRITTANY RODRIGUEZ Aug 07, 2023 09:35 PATSY RACHEL DO Aug 08, 2023 21:03
--- NOTE | 2023-08-07 10:20 | History & Physical ---
ROSEANNA MARTE 08/07/23 1020: History of Present Illness History of Present Illness Reason for visit/HPI Pt presented to the ED on 08/06 due to continued bleeding post colonoscopy on 07/[address] Trejo. Pt states that he was having increased bloody bowel movements after the procedure. He started his blood thinners 3 days post- colonoscopy. Last BM was around 7am. There was less blood than usual and some clots were present. Currently on a liquid diet. Positive assoc sx include general feeling of fatigue. Negative assoc sx include abdominal pain. Date of Admission Aug 06, 2023 at 22:25 Date Seen by a Provider: Aug 07, 2023 Time Seen by a Provider: 09:45 I consulted on this patient on 08/07/23 10:15 Attending Physician Barrera,Juan BENNETT Admitting Physician Admitting Physician: Wandy Schroeder DO Attending Physician: Wandy Schroeder DO Consult Allergies and Home Medications Allergies Coded Allergies: adhesive tape (Unverified Allergy, Mild, 03/03/21) turns red Patient Home Medication List Home Medication List Reviewed: Yes Acetaminophen (Tylenol Extra Strength) 500 Mg Tablet, 1,000 MG PO Q8H PRN for PAIN-MILD (1-4), (Reported) Entered as Reported by: ELIZABETH FERNANDEZ on 08/07/23 1136 Last Action: Continued Aspirin (Aspirin EC) 81 Mg Tablet.dr, 81 MG PO DAILY Prescribed by: WANDY SCHROEDER on 08/08/23 1233 Atorvastatin Calcium (Atorvastatin Calcium) 80 Mg Tablet, 80 MG PO HS, (Reporte d) Entered as Reported by: STELLA BRONSON on 07/23/21 08 Last Action: Continued Carvedilol (Carvedilol) 25 Mg Tablet, 25 MG PO BID, (Reported) Entered as Reported by: STELLA BRONSON on 07/23/21 0803 Last Action: Converted Clopidogrel Bisulfate (Clopidogrel) 75 Mg Tablet, 75 MG PO DAILY Prescribed by: WANDY SCHROEDER on 08/08/23 1233 Dextroamphetamine/Amphetamine (Amphetamine Salts 10 mg Tablet) 10 Mg Tablet, 10 MG PO 0900,1300, (Reported) Entered as Reported by: ELIZABETH FERNANDEZ on 08/07/23 1136 Last Action: Converted Dulaglutide (Trulicity) 1.5 Mg/0.5 Ml Pen.injctr, 1.5 MG SQ SUN, (Reported) Entered as Reported by: STELLA BRONSON on 07/23/21802 Last Action: Converted Empagliflozin (Jardiance) 25 Mg Tablet, 25 MG PO DAILY, (Reported) Entered as Reported by: STELLA BRONSON on 07/23/21802 Last Action: Converted Lisinopril (Lisinopril) 20 Mg Tablet, 20 MG PO HS, (Reported) Entered as Reported by: ELIZABETH FERNANDEZ on 08/07/231135 Last Action: Continued Metformin HCl (Metformin HCl) 1,000 Mg Tablet, 1,000 MG PO BID, (Reported) Entered as Reported by: ELIZABETH FERNANDEZ on 08/07/231135 Last Action: Converted Modafinil (Modafinil) 200 Mg Tablet, 200 MG PO DAILY, (Reported) Entered as Reported by: STELLA BRONSON on 07/23/21802 Last Action: Converted Nitroglycerin (Nitroglycerin) 0.4 Mg Tab.subl, 0.4 MG SL UD PRN for CHEST PAIN, (Reported) Entered as Reported by: ELIZABETH FERNANDEZ on 08/07/231135 Last Action: Continued [place]-3 Acid Ethyl Esters (Lovaza) 1 Gram Capsule, 2 GM PO BID, (Reported) Entered as Reported by: ELIZABETH FERNANDEZ on 08/07/231135 Last Action: Continued Pantoprazole Sodium (Pantoprazole Sodium) 40 Mg Tablet.dr, 40 MG PO DAILY, (Reported) Entered as Reported by: ELIZABETH FERNANDEZ on 08/07/231135 Last Action: Continued Spironolactone (Spironolactone) 25 Mg Tablet, 25 MG PO DAILY, (Reported) Entered as Reported by: STELLA BRONSON on 07/23/21802 Last Action: Continued Discontinued Medications Albuterol Sulfate (Ventolin Hfa) 1 Puff Puff, 2 PUFF IH Q4-6HRS, (Reported) Discontinued Reason: No Longer Taking Entered as Reported by: STELLA BRONSON on 07/23/21802 Last Action: Discontinued Aspirin (Aspirin EC) 81 Mg Tablet.dr, 81 MG PO DAILY Discontinued Reason: No Longer Taking Prescribed by: SHILO POLLARD on 07/23/211550 Last Action: Discontinued Clopidogrel Bisulfate (Clopidogrel) 75 Mg Tablet, 75 MG PO DAILY Discontinued Reason: No Longer Taking Prescribed by: SHILO POLLARD on 07/23/211550 Last Action: Discontinued Dextroamphetamine/Amphetamine (Adderall 10 mg Tablet) 10 Mg Tablet, 10 MG PO DAILY, (Reported) Discontinued Reason: No Longer Taking Entered as Reported by: STELLA BRONSON on 07/23/21802 Last Action: Discontinued Metformin HCl (Metformin HCl) 1,000 Mg Tablet, 1,000 MG PO BID Discontinued Reason: No Longer Taking Prescribed by: SHILO POLLARD on 07/23/211550 Last Action: Discontinued Nitroglycerin (Nitroglycerin) 0.4 Mg Tab.subl, 0.4 MG SL PRN, (Reported) Discontinued Reason: No Longer Taking Entered as Reported by: STELLA BRONSON on 07/23/21802 Last Action: Discontinued Quinapril HCl (Quinapril HCl) 20 Mg Tablet, 20 MG PO DAILY, (Reported) Discontinued Reason: No Longer Taking Entered as Reported by: STELLA BRONSON on 07/23/21802 Last Action: Discontinued [[place] 3 ] , 4 GM PO DAILY, (Reported) Discontinued Reason: No Longer Taking Entered as Reported by: STELLA BRONSON on 07/23/21802 Last Action: Discontinued Past Zzfqzvh-Yrwwgr-Ueakzi Hx Patient Social History 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) Tobacco Use?: Yes Tobacco type used: Cigarettes Smoking Status: Former Smoker (stop smoking on May 02, 2021) Use of E-Cig and/or Vaping dev: No Use of E-Cig and/or Vaping Sergio: Unknown if Ever Used Substance use?: No Alcohol Use?: No Alcohol Frequency: Once in a while Pt feels they are or have been: No Current Status Advance Directives: No Communicates: Verbally Primary Language: Slovenian Preferred Spoken Language: Slovenian Is interpretation needed?: No Sensory deficits: Vision impairment Implanted or Applied Medical D: Stents Past Medical History Surgeries: Appendectomy, Cardiac, Coronary Stent Sleep Apnea, COPD Currently Using CPAP: Yes Coronary Artery Disease, Heart Attack, High Cholesterol, Hypertension Polyps Diabetes, Non-Insulin dep Blood Disorders: No Review of Systems Constitutional: No dizziness, No fever EENTM: No ear pain, No blurred vision Respiratory: No cough, No short of breath Cardiovascular: No chest pain Gastrointestinal: No abdominal pain, No constipation Psychiatric/Neurological: Denies Headache Physical Exam Vital Signs Vital Signs - First Documented 08/06/23 08/06/23 17:48 22:44 Temp 36.6 Pulse 95 Resp 16 B/P (MAP) 144/86 (105) Pulse Ox 97 O2 Delivery Room Air FiO2 21 Capillary Refill : Less Than 3 Seconds Height, Weight, BMI Height: '" Weight: lbs. oz. kg; 38.72 BMI Method: General Appearance: Obese Eyes: Bilateral Eye Normal Inspection HEENT: PERRL/EOMI; No Scleral Icterus (L), No Scleral Icterus (R) Neck: No JVD Respiratory: Chest Non Tender, Lungs Clear, Normal Breath Sounds, No Accessory Muscle Use, No Respiratory Distress Cardiovascular: No Edema, No Gallop, No JVD, No Murmur, Normal Peripheral Pulses Gastrointestinal: Normal Bowel Sounds, Non Tender, Soft; No Distended, No Guarding Extremity: Normal Capillary Refill, No Pedal Edema Neurologic/Psychiatric: Alert, Oriented x3, No Motor/Sensory Deficits, Normal Mood/Affect, home health clinical liaison II-XII Norm as Tested Assessment/Plan Assessment and Plan Assessment: Post colonoscopy GI bleeding s/p Polypectomy on blood thinners CAD HTN Hyperlipidemia GERD DMII Sleep Apnea Plan: Post colonoscopy GI Bleeding s/p Polypectomy on blood thinners -stay off blood thinners for a few more days -Dr. Trejo will consult to determine further tx of pt Coronary artery disease -Underwent LHC on 07/23/21 with severe stenosis in the mid LAD with successful stenting using Nuvia 3.5x23mm. -Staying off blood thinners for a few more days -Continue to monitor HTN -continue current medications Hyperlipidemia -continue Lipitor 80mg daily GERD -continue Protonix Diabetes mellitus -followed and managed by primary care physician Obstructive sleep apnea -continue using CPAP Clinical Quality Measures DVT/VTE Risk/Contraindication: Contraindications-Pharm: Other *list below* Other: WANDY LOTT DO 08/08/232051: History of Present Illness History of Present Illness Reason for visit/HPI Chief complaint: Hematochezia HPI this is a 58-year-old male with a history of CAD and stent placement 2 years ago maintained on Plavix and aspirin who had 2 colon polyps removed by Dr. Trejo during screening colonoscopy earlier in the week and then started on Plavix and aspirin 3 days afterwards and then began having hematochezia. We will monitor patient closely due to high risk for decompensation Allergies and Home Medications Allergies Coded Allergies: adhesive tape (Unverified Allergy, Mild, 03/03/21) turns red Patient Home Medication List Home Medication List Reviewed: Yes Acetaminophen (Tylenol Extra Strength) 500 Mg Tablet, 1,000 MG PO Q8H PRN for PAIN-MILD (1-4), (Reported) Entered as Reported by: ELIZABETH FERNANDEZ on 08/07/231135 Last Action: Continued Aspirin (Aspirin EC) 81 Mg Tablet.dr, 81 MG PO DAILY Prescribed by: WANDY SCHROEDER on 08/08/23 123 Atorvastatin Calcium (Atorvastatin Calcium) 80 Mg Tablet, 80 MG PO HS, (Reported) Entered as Reported by: STELLA BRONSON on 07/23/21802 Last Action: Continued Carvedilol (Carvedilol) 25 Mg Tablet, 25 MG PO BID, (Reported) Entered as Reported by: STELLA BRONSON on 07/23/21802 Last Action: Converted Clopidogrel Bisulfate (Clopidogrel) 75 Mg Tablet, 75 MG PO DAILY Prescribed by: WANDY SCHROEDER on 08/08/23 1233 Dextroamphetamine/Amphetamine (Amphetamine Salts 10 mg Tablet) 10 Mg Tablet, 10 MG PO 0900,1300, (Reported) Entered as Reported by: ELIZABETH FERNANDEZ on 08/07/231135 Last Action: Converted Dulaglutide (Trulicity) 1.5 Mg/0.5 Ml Pen.injctr, 1.5 MG SQ SUN, (Reported) Entered as Reported by: STELLA BRONSON on 07/23/21802 Last Action: Converted Empagliflozin (Jardiance) 25 Mg Tablet, 25 MG PO DAILY, (Reported) Entered as Reported by: STELLA BRONSON on 07/23/21802 Last Action: Converted Lisinopril (Lisinopril) 20 Mg Tablet, 20 MG PO HS, (Reported) Entered as Reported by: ELIZABETH FERNANDEZ on 08/07/231135 Last Action: Continued Metformin HCl (Metformin HCl) 1,000 Mg Tablet, 1,000 MG PO BID, (Reported) Entered as Reported by: ELIZABETH FERNANDEZ on 08/07/231135 Last Action: Converted Modafinil (Modafinil) 200 Mg Tablet, 200 MG PO DAILY, (Reported) Entered as Reported by: STELLA BRONSON on 07/23/21802 Last Action: Converted Nitroglycerin (Nitroglycerin) 0.4 Mg Tab.subl, 0.4 MG SL UD PRN for CHEST PAIN, (Reported) Entered as Reported by: ELIZABETH FERNANDEZ on 08/07/231135 Last Action: Continued [place]-3 Acid Ethyl Esters (Lovaza) 1 Gram Capsule, 2 GM PO BID, (Reported) Entered as Reported by: ELIZABETH FERNANDEZ on 08/07/231135 Last Action: Continued Pantoprazole Sodium (Pantoprazole Sodium) 40 Mg Tablet.dr, 40 MG PO DAILY, (Reported) Entered as Reported by: ELIZABETH FERNANDEZ on 08/07/231135 Last Action: Continued Spironolactone (Spironolactone) 25 Mg Tablet, 25 MG PO DAILY, (Reported) Entered as Reported by: STELLA BRONSON on 07/23/21802 Last Action: Continued Discontinued Medications Albuterol Sulfate (Ventolin Hfa) 1 Puff Puff, 2 PUFF IH Q4-6HRS, (Reported) Discontinued Reason: No Longer Taking Entered as Reported by: STELLA BRONSON on 07/23/21802 Last Action: Discontinued Aspirin (Aspirin EC) 81 Mg Tablet.dr, 81 MG PO DAILY Discontinued Reason: No Longer Taking Prescribed by: SHILO POLLARD on 07/23/211550 Last Action: Discontinued Clopidogrel Bisulfate (Clopidogrel) 75 Mg Tablet, 75 MG PO DAILY Discontinued Reason: No Longer Taking Prescribed by: SHILO POLLARD on 07/23/211550 Last Action: Discontinued Dextroamphetamine/Amphetamine (Adderall 10 mg Tablet) 10 Mg Tablet, 10 MG PO DAILY, (Reported) Discontinued Reason: No Longer Taking Entered as Reported by: STELLA BRONSON on 07/23/21802 Last Action: Discontinued Metformin HCl (Metformin HCl) 1,000 Mg Tablet, 1,000 MG PO BID Discontinued Reason: No Longer Taking Prescribed by: SHILO POLLARD on 07/23/211550 Last Action: Discontinued Nitroglycerin (Nitroglycerin) 0.4 Mg Tab.subl, 0.4 MG SL PRN, (Reported) Discontinued Reason: No Longer Taking Entered as Reported by: STELLA BRONSON on 07/23/21802 Last Action: Discontinued Quinapril HCl (Quinapril HCl) 20 Mg Tablet, 20 MG PO DAILY, (Reported) Discontinued Reason: No Longer Taking Entered as Reported by: STELLA BRONSON on 07/23/21802 Last Action: Discontinued [[place] 3 ] , 4 GM PO DAILY, (Reported) Discontinued Reason: No Longer Taking Entered as Reported by: STELLA BRONSON on 07/23/21802 Last Action: Discontinued Past Ewpbstv-Sundmt-Ugjfnh Hx Patient Social History Marrital Status: 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: Former Smoker (stop smoking on May 02, 2021) Past Medical History Coronary Artery Disease, High Cholesterol, Hypertension Diabetes, Non-Insulin dep Review of Systems Constitutional: see HPI, weakness Gastrointestinal: see HPI Physical Exam General Appearance: No Apparent Distress, WD/WN, Chronically ill Respiratory: Lungs Clear, Normal Breath Sounds Cardiovascular: Regular Rate, Rhythm Neurologic/Psychiatric: Alert, Oriented x3 Assessment/Plan Assessment and Plan Hematochezia GI bleed post colonoscopy with polypectomy CAD restarted Plavix and aspirin 3 days after colonoscopy Monitor closely Problems: (1) GI bleed (2) Hx of colonic polyps Admission Diagnosis Admission Status: Observation Supervisory-Addendum Brief Verification & Attestation Participated in pt care: history, MDM, physical Personally performed: exam, history, MDM, supervision of care Care discussed with: Medical Student Procedures: n/a Results interpretation: Verified all documentation Verification and Attestation of Medical Student E/M Service A medical student performed and documented this service in my presence. I reviewed and verified all information documented by the medical student and made modifications to such information, when appropriate. I personally performed the physical exam and medical decision making. Wandy Schroeder, Aug 08, 2023,20:52 ROSEANNA MARTE Aug 07, 2023 10:20 WANDY SCHROEDER DO Aug 08, 2023 20:52
[2023-08-07] MEDS: NS IV 1000 ML 1,000 ML IV SCH ×2 (10:22→18:31)
--- NOTE | 2023-08-07 10:26 | Consultation-Cardiology ---
HPI-Cardiology Cardiology Consultation Date of Consultation 08/07/23 Date of Admission Time Seen by Provider: 08:20 Indication: GI bleed, hx CAD HPI Patient is a 58 y/o male with history of CAD, HTN, HLP, DM. Had colonoscopy done last week. Restarted his ASA and Plavix several days after procedure. Patient reports he had loose stool, followed by blood in stool x 2. Denies any chest pain, dyspnea, dizziness or lightheadedness. Home Medications & Allergies Allergies: Coded Allergies: adhesive tape (Unverified Allergy, Mild, 03/03/21) turns red Home Medication List Reviewed: Yes VJU-Pxyjct-Jagskk Hx Patient Social History Marital Status: single Smoking Status: Current Everyday Smoker Alcohol Use?: No Family Medical History Significant Family History: No Pertinent Family Hx Review of Systems-General Review of Systems Constitutional: see HPI EENTM: see HPI; No no symptoms reported Respiratory: see HPI; No cough, No dyspnea on exertion Cardiovascular: see HPI; No chest pain, No edema; Hx of Intervention, vascular heart diseas Gastrointestinal: see HPI Genitourinary: see HPI Musculoskeletal: no symptoms reported Skin: no symptoms reported Psychiatric/Neurological: No Symptoms Reported Reviewed Test Results Reviewed Test Results Lab Laboratory Tests 08/06/23 17:58: White Blood Count 8.3, Red Blood Count 5.37, Hemoglobin 15.3, Hematocrit 46, Mean Corpuscular Volume 86, Mean Corpuscular Hemoglobin 29, Mean Corpuscular Hemoglobin Concent 33, Red Cell Distribution Width 14.8H, Platelet Count 225, Mean Platelet Volume 10.4, Immature Granulocyte % (Auto) 1, Neutrophils (%) (Auto) 68, Lymphocytes (%) (Auto) 20, Monocytes (%) (Auto) 8, Eosinophils (%) (Auto) 2, Basophils (%) (Auto) 1, Neutrophils # (Auto) 5.6, Lymphocytes # (Auto) 1.7, Monocytes # (Auto) 0.7, Eosinophils # (Auto) 0.2, Basophils # (Auto) 0.1, Immature Granulocyte # (Auto) 0.1, Prothrombin Time 13.2, INR Comment 1.0, Activated Partial Thromboplast Time 25, Sodium Level 136, Potassium Level 4.0, Chloride Level 105, Carbon Dioxide Level 17L, Anion Gap 14, Blood Urea Nitrogen 23H, Creatinine 0.88, Estimat Glomerular Filtration Rate 100, BUN/Creatinine Ratio 26, Glucose Level 190H, Calcium Level 9.3, Corrected Calcium 9.0, Magnesium Level 1.9, Total Bilirubin < 0.1L, Aspartate Amino Transf (AST/SGOT) 14, Alanine Aminotransferase (ALT/SGPT) 21, Alkaline Phosphatase 45, Total Protein 6.8, Albumin 4.4 08/06/23 18:08: Urine Color YELLOW, Urine Clarity CLEAR, Urine pH 5.0, Urine Specific [place] 1.015L, Urine Protein NEGATIVE, Urine Glucose (UA) 3+H, Urine Ketones 1+H, Urine Nitrite NEGATIVE, Urine Bilirubin NEGATIVE, Urine Urobilinogen 0.2, Urine Leukocyte Esterase NEGATIVE, Urine RBC (Auto) TRACEH, Urine RBC NONE, Urine WBC NONE, Urine Squamous Epithelial Cells RARE, Urine Crystals NONE, Urine Bacteria NEGATIVE, Urine Casts NONE, Urine Mucus NEGATIVE, Urine Culture Indicated NO 08/07/23 04:25: White Blood Count 7.2, Red Blood Count 4.80, Hemoglobin 13.4, Hematocrit 42, Mean Corpuscular Volume 87, Mean Corpuscular Hemoglobin 28, Mean Corpuscular Hemoglobin Concent 32, Red Cell Distribution Width 14.8H, Platelet Count 189, Mean Platelet Volume 10.4, Immature Granulocyte % (Auto) 1, Neutrophils (%) (Auto) 62, Lymphocytes (%) (Auto) 22, Monocytes (%) (Auto) 11, Eosinophils (%) (Auto) 3, Basophils (%) (Auto) 1, Neutrophils # (Auto) 4.5, Lymphocytes # (Auto) 1.6, Monocytes # (Auto) 0.8, Eosinophils # (Auto) 0.2, Basophils # (Auto) 0.0, Immature Granulocyte # (Auto) 0.1, Sodium Level 136, Potassium Level 3.9, Chlo ride Level 105, Carbon Dioxide Level 19L, Anion Gap 12, Blood Urea Nitrogen 18, Creatinine 0.79, Estimat Glomerular Filtration Rate 103, BUN/Creatinine Ratio 23, Glucose Level 117H, Calcium Level 8.4L, Corrected Calcium 8.6, Total Bilirubin 0.7, Aspartate Amino Transf (AST/SGOT) 12, Alanine Aminotransferase (ALT/SGPT) 16, Alkaline Phosphatase 37L, Total Protein 5.8L, Albumin 3.8 Physical Exam Physical Exam Vital Signs Vital Signs - First Documented 08/06/23 08/06/23 17:48 22:44 Temp 36.6 Pulse 95 Resp 16 B/P (MAP) 144/86 (105) Pulse Ox 97 O2 Delivery Room Air FiO2 21 Capillary Refill : Less Than 3 Seconds Height, Weight, BMI Height: '" Weight: lbs. oz. kg; 38.72 BMI Method: General Appearance: No Apparent Distress, WD/WN HEENT: PERRL/EOMI Neck: Full Range of Motion, Normal Inspection Respiratory: Chest Non Tender, Lungs Clear Cardiovascular: Regular Rate, Rhythm, No Edema, Normal Peripheral Pulses Gastrointestinal: Normal Bowel Sounds, Non Tender, Soft Rectal: Deferred Back: No CVA Tenderness Extremity: Non Tender, No Calf Tenderness Neurologic/Psychiatric: Alert, Oriented x3 A/P-Cardiology Admission Diagnosis GI bleed CAD HTN HLP Assessment/Plan GI bleed, recent colonoscopy done last week. Noted to have blood in stool yesterday, reporting improvement. Management per Dr. Trejo Coronary artery disease, history of old myocardial infarction, Reporting cardiac catheterization done in 2005 and had INSPECTOR MECH[employer] of the circumflex artery and the lesion in the ostial diagonal artery, had right to left and left to left collaterals. Referred to [facility] with Dr. Wolf, underwent extensive attempt to revascularize that has failed in 2005. Underwent LHC on 07/23/21 with severe stenosis in the mid LAD with successful stenting using Nuvia 3.5x23mm. He is doing well. Continue to monitor Scheduled for stress test as outpatient in 2 weeks. Will d/c Plavix, hold ASA at this time. Echocardiogram done on May 31, 2021 showing normal LV size, EF 55 to 65%, left atrium 3.36 cm, PA pressure 15 to 20 mmHg. GERD, maintained on Protonix. 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 Hypertension, restart home blood pressure medication and continue to monitor. Hyperlipidemia, maintained on Lipitor 80 mg daily. Reports recent lipid profile done by PCP, I will try to obtain a copy for our records. Diabetes mellitus, followed and managed by primary care physician Hypertriglyceridemia, we discussed diet and limiting carbohydrate and tight diabetic control. BMI 41, we discussed weight loss and exercise. Tobaccoism, Encouraged to continue with smoking cessation Strong family history of heart disease with multiple family members with heart disease. Obstructive sleep apnea, using CPAP Thank you for allowing us to participate in the management of Dr. Bradshaw. This is Bere Singh PA-C, as a scribe for Dr. Maher Patient was seen and evaluated with Bere, I interviewed and examined the patient, discussed the management plan and agree with the current note Patient had recurrent GI bleed, instructed him to continue with holding aspirin and Plavix for now, monitor H&H Restart blood pressure medication, continue on Lipitor Monitor blood pressure and lipids Clinical Quality Measures DVT/VTE Risk/Contraindication: Contraindications-Pharm: Other *list below* Other: BEER JASMINE PA-C Aug 07, 2023 10:26 SHILO MAHER MD Aug 07, 2023 10:34
[2023-08-07] MEDS ORDERED: NITR0.4T39 SL (11:36)
[2023-08-07] MEDS ORDERED: PANT40TA52 PO (11:36)
[2023-08-07] MEDS ORDERED: METF-399 PO (11:36)
[2023-08-07] MEDS ORDERED: LISI20TA26 PO (11:36)
[2023-08-07] MEDS ORDERED: ACET-2267 PO (11:36)
[2023-08-07] MEDS ORDERED: NF-LOVAZAC PO (11:36)
[2023-08-07] MEDS ORDERED: CLOP75TA28 PO (11:36)
[2023-08-07] MEDS ORDERED: ASPI-1238 PO (11:36)
[2023-08-07] MEDS ORDERED: DEXT10TA24 PO (11:36)
[2023-08-07] MEDS ORDERED: NITROGLYCERIN 0.4 MG SL TABLETS BTL 25'S SL PRN (12:15)
[2023-08-07] MEDS ORDERED: ACETAMINOPHEN 500 MG TABLET PO PRN (12:15)
[2023-08-07] MEDS ORDERED: NON-FORMULARY MEDICATION 1 EA EA (Dulaglutide (Trulicity) 1.5 MG) SQ SCH (12:15)
[2023-08-07] MEDS ORDERED: NON-FORMULARY MEDICATION 1 EA EA (Dextroamphetamine/Amphetamine (Amphetamine Salts 10 mg T PO SCH (13:00)
[2023-08-07] MEDS ORDERED: metFORMIN 500 MG TABLET PO SCH (18:00)
[2023-08-07] MEDS ORDERED: PATIENT MAY USE OWN MEDS, ALL MC SCH (18:15)
[2023-08-07] MEDS: METFORMIN 1000 MG PO SCH (18:43)
[2023-08-07] MEDS: OMEGA ACID ETHYL ESTERS PO SCH (20:41)
[2023-08-07] MEDS: CARVEDILOL 25 MG TAB PO SCH (20:42)
[2023-08-07] MEDS ORDERED: NON-FORMULARY MEDICATION 1 EA EA (Metformin HCl 1,000 MG) PO SCH (21:00)
[2023-08-07] MEDS ORDERED: OMEGA 3 (FISH OIL) 1000 MG CAP PO SCH (21:00)
[2023-08-07] MEDS ORDERED: NON-FORMULARY MEDICATION 1 EA EA (Carvedilol 25 MG) PO SCH (21:00)
[2023-08-07] MEDS ORDERED: OMEGA ACID ETHYL ESTERS PO SCH (21:00)
[2023-08-07] MEDS ORDERED: carvediloL 12.5 MG TABLET PO SCH (21:00)
[2023-08-08 04:59] VITALS: BP 125/68
[2023-08-08 06:16] LABS: BASOPHILS % (AUTO) 1 % (0-10); EOSINOPHILS # (AUTO) 0.2 10^3/uL (0.0-0.3); EOSINOPHILS % (AUTO) 3 % (0-10); HEMATOCRIT 40 % (40-54); HEMOGLOBIN 12.8 g/dL (13.3-17.7); LYMPHOCYTES # (AUTO) 1.5 10^3/uL (1.0-4.0); LYMPHOCYTES % (AUTO) 25 % (12-44); MEAN CORPUSCULAR HEMOGLOBIN 28 pg (25-34); MEAN CORPUSCULAR HGB CONC 32 g/dL (32-36); MEAN CORPUSCULAR VOLUME 87 fL (80-99); MEAN PLATELET VOLUME 10.7 fL (9.0-12.2); MONOCYTES # (AUTO) 0.6 10^3/uL (0.0-1.0); MONOCYTES % (AUTO) 10 % (0-12); NEUTROPHILS # (AUTO) 3.7 10^3/uL (1.8-7.8); NEUTROPHILS % (AUTO) 60 % (42-75); PLATELET COUNT 200 10^3/uL (130-400); WHITE BLOOD COUNT 6.1 10^3/uL (4.3-11.0)
[2023-08-08 06:26] LABS: ALBUMIN 3.8 GM/DL (3.2-4.5); POTASSIUM 3.8 MMOL/L (3.6-5.0)
[2023-08-08 06:27] LABS: CALCIUM 8.4 MG/DL (8.5-10.1)
[2023-08-08 06:28] LABS: TOTAL PROTEIN 5.7 GM/DL (6.4-8.2)
[2023-08-08 06:30] LABS: BILIRUBIN,TOTAL 0.6 MG/DL (0.1-1.0)
[2023-08-08] MEDS: inSUlin ASPART 1 UNIT/0.01 ML (PER UNIT) SC SCH ×4 (06:30→21:00)
[2023-08-08 06:32] LABS: CREATININE SERUM 0.81 MG/DL (0.60-1.30)
[2023-08-08 07:37] VITALS: BP 112/58
--- NOTE | 2023-08-08 08:20 | Cardiology Progress Note ---
Subjective Date Seen by Provider: Aug 08, 2023 Time Seen by Provider: 08:10 Subjective/Events-last exam Patient is sitting up in bed, denies chest pain or abdominal pain. Objective-Cardiology Exam Last Set of Vital Signs Vital Signs 08/06/23 08/08/23 22:44 07:37 Temp 36.5 Pulse 65 Resp 18 B/P (MAP) 112/58 (76) Pulse Ox 95 O2 Delivery Room Air FiO2 21 I&O Intake and Output 08/08/23 00:00 Intake Total 2900 ml Output Total 100 ml Balance 2800 ml Intake Oral 2900 ml Output Urine Total 100 ml # Voids 6 # Bowel Movements 3 General: Alert, Oriented X3, Cooperative HEENT: Atraumatic Neck: Supple Lungs: Clear to Auscultation, Normal Air Movement Heart: Regular Rate, Normal S1, Normal S2 Abdomen: Normal Bowel Sounds, Soft Extremities: No Edema Neuro: Normal Gait Results Lab Laboratory Tests 08/08/23 05:46 A/P-Cardiology Admission Diagnosis GI bleed CAD HTN HLP Assessment/Plan GI bleed, recent colonoscopy done last week. Noted to have blood in stool yesterday, reporting improvement. Management per Dr. Trejo Coronary artery disease, history of old myocardial infarction, Reporting cardiac catheterization done in 2005 and had MANUFACTURING ADVISOR of the circumflex artery and the lesion in the ostial diagonal artery, had right to left and left to left collaterals. Referred to [facility] with Dr. Wolf, underwent extensive attempt to revascularize that has failed in 2005. Underwent LHC on 07/23/21 with severe stenosis in the mid LAD with successful stenting using Nuvia 3.5x23mm. He is doing well. Continue to monitor Scheduled for stress test as outpatient in 2 weeks. Will d/c Plavix, hold ASA at this time. Echocardiogram done on May 31, 2021 showing normal LV size, EF 55 to 65%, left atrium 3.36 cm, PA pressure 15 to 20 mmHg. GERD, maintained on Protonix. 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 Hypertension, restart home blood pressure medication and continue to monitor. Hyperlipidemia, maintained on Lipitor 80 mg daily. Reports recent lipid profile done by PCP, I will try to obtain a copy for our records. Diabetes mellitus, followed and managed by primary care physician Hypertriglyceridemia, we discussed diet and limiting carbohydrate and tight diabetic control. BMI 41, we discussed weight loss and exercise. Tobaccoism, Encouraged to continue with smoking cessation Strong family history of heart disease with multiple family members with heart disease. Obstructive sleep apnea, using CPAP Supervisory-Addendum Brief Supervisory Addendum Participated in pt care: history, MDM, physical Personally performed: exam, history, MDM Care discussed with: AMANDA Results interpretation: Verified all documentation Notes: Patient was seen and evaluated with Moraima, no new complaint, on examination lungs were clear to auscultation bilaterally, heart is regular rate and rhythm. I will continue on current medication, monitor blood pressure and lipids Patient was seen at bedside, laying down comfortably, no new complaint. Denied any chest pain Monitor H&H Continue to hold antiplatelet therapy MORAIMA MUKHEJREE PA-C Aug 08, 2023 08:20 SHILO POLLARD MD Aug 08, 2023 08:44
--- NOTE | 2023-08-08 08:30 | Progress Note - Surgery ---
BRITTANY RODRIGUEZ 08/08/23 0830: Subjective Date Seen by a Provider: Aug 08, 2023 Time Seen by a Provider: 07:40 Subjective/Events-last exam Pt is doing well and has no concerns. Hgb stable at 12.8. Pt has not had bowel movement since yesterday morning. Denies fever, nausea, vomiting, abdominal pain, chest pain, SOA, fatigue, dysuria. Review of Systems General: No Chills, No Night Sweats, No Fatigue HEENT: No Head Aches, No Sinus Congestion Pulmonary: No Dyspnea, No Cough Cardiovascular: No: Chest Pain, Palpitations Gastrointestinal: No: Nausea, Vomiting Genitourinary: No Dysuria, No Frequency Musculoskeletal: No: neck pain, shoulder pain Neurological: No: Weakness, Numbness Objective Exam Vital Signs Date Time Temp Pulse Resp B/P (MAP) Pulse Ox O2 Delivery O2 Flow Rate FiO2 08/08/23 07:37 36.5 65 18 112/58 (76) 95 Room Air 08/08/23 04:59 36.4 66 18 125/68 (87) 95 NIV CPAP 08/07/23 23:59 36.3 69 20 112/68 (83) 95 NIV CPAP 08/07/23 20:45 Room Air 08/07/23 19:42 36.0 69 20 150/87 (108) Room Air 08/07/23 16:14 36.5 70 19 165/83 (110) 96 Room Air 08/07/23 13:24 36.2 74 18 148/82 (104) 95 Room Air 08/07/23 12:06 70 08/07/23 11:47 35.9 75 18 157/94 (115) 96 Room Air I & O 08/08/23 07:00 Intake Total 2350 ml Output Total 1400 ml Balance 950 ml Capillary Refill : Less Than 3 Seconds General Appearance: Obese HEENT: PERRL/EOMI; No Scleral Icterus (L), No Scleral Icterus (R) Neck: No JVD Respiratory: Chest Non Tender, Lungs Clear, Normal Breath Sounds, No Accessory Muscle Use, No Respiratory Distress Cardiovascular: No Edema, No Gallop, No JVD, No Murmur, Normal Peripheral Pulses Gastrointestinal: non tender, soft, no organomegaly, abnormal bowel sounds (hyperactive) Extremity: Normal Capillary Refill, No Pedal Edema Neurologic/Psychiatric: Alert, Oriented x3, No Motor/Sensory Deficits, Normal Mood/Affect, cath lab technologist II-XII Norm as Tested Skin: Normal Color, Warm/Dry Lymphatic: No Adenopathy Results Lab Laboratory Tests 08/07/23 10:36: Glucometer 133H 08/07/23 17:08: Glucometer 103 08/07/23 21:39: Glucometer 126H 08/08/23 05:46: White Blood Count 6.1, Red Blood Count 4.62, Hemoglobin 12.8L, Hematocrit 40, Mean Corpuscular Volume 87, Mean Corpuscular Hemoglobin 28, Mean Corpuscular Hemoglobin Concent 32, Red Cell Distribution Width 14.7H, Platelet Count 200, Mean Platelet Volume 10.7, Immature Granulocyte % (Auto) 1, Neutrophils (%) (Auto) 60, Lymphocytes (%) (Auto) 25, Monocytes (%) (Auto) 10, Eosinophils (%) (Auto) 3, Basophils (%) (Auto) 1, Neutrophils # (Auto) 3.7, Lymphocytes # (Auto) 1.5, Monocytes # (Auto) 0.6, Eosinophils # (Auto) 0.2, Basophils # (Auto) 0.0, Immature Granulocyte # (Auto) 0.1, Sodium Level 138, Potassium Level 3.8, Chloride Level 108H, Carbon Dioxide Level 22, Anion Gap 8, Blood Urea Nitrogen 11, Creatinine 0.81, Estimat Glomerular Filtration Rate 102, BUN/Creatinine Rati o 14, Glucose Level 121H, Calcium Level 8.4L, Corrected Calcium 8.6, Total Bilirubin 0.6, Aspartate Amino Transf (AST/SGOT) 15, Alanine Aminotransferase (ALT/SGPT) 23, Alkaline Phosphatase 36L, Total Protein 5.7L, Albumin 3.8 Assessment/Plan Assessment/Plan Assessment/Plan Assessment: Post-colonoscopy with polypectomy Bright Red Blood Per Rectum 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 Hgb minimal drop to 12.8. One bloody bm today. Denies any new complaints. Denies n/v fever sweats chills shortness of breath or chest pain. Objective Exam General Appearance: No Apparent Distress, Obese HEENT: PERRL/EOMI, Normal ENT Inspection Neck: Non Tender, Supple Respiratory: Chest Non Tender, No Accessory Muscle Use, No Respiratory Distress Cardiovascular: Regular Rate, Rhythm, No JVD Gastrointestinal: non tender, soft Extremity: Normal Capillary Refill, Non Tender Neurologic/Psychiatric: Alert, Oriented x3 Skin: Normal Color, Warm/Dry Lymphatic: No Adenopathy Assessment/Plan Assessment/Plan Assessment/Plan Lower gi bleed Post polypectomy bleed chcf antiplatelet Hold Plavix/ASA Fluid Resuscitation Monitor Hgb- Currently 12.8 down from 13.4 yesterday Hgb stable at 12.8, last stool was bloody Clear liquids, If hgb stable advance diet likely home tomorrow Supervisory-Addendum Brief Verification & Attestation Participated in pt care: history, MDM, physical Personally performed: exam, history, MDM, supervision of care Care discussed with: Medical Student Procedures: n/a Results interpretation: Verified all documentation Verification and Attestation of Medical Student E/M Service A medical student performed and documented this service in my presence. I reviewed and verified all information documented by the medical student and made modifications to such information, when appropriate. I personally performed the physical exam and medical decision making. Patsy Trejo, Aug 08, 2023,21:11 BRITTANY RODRIGUEZ Aug 08, 2023 08:30 PATSY TREJO DO Aug 08, 2023 21:10
[2023-08-08] MEDS: PANTOPRAZOLE 40 MG TABLET PO SCH (08:31)
[2023-08-08] MEDS: NS IV 1000 ML 1,000 ML IV SCH (08:31)
[2023-08-08] MEDS: JARDIANCE 25 MG TAB PO SCH (08:32)
[2023-08-08] MEDS: SPIRONOLACTONE 25 MG TABLET PO SCH (08:33)
[2023-08-08] MEDS: CARVEDILOL 25 MG TAB PO SCH ×2 (08:33→20:46)
[2023-08-08] MEDS: METFORMIN 1000 MG PO SCH ×2 (08:34→18:20)
[2023-08-08] MEDS: OMEGA ACID ETHYL ESTERS PO SCH ×2 (08:35→20:45)
[2023-08-08] MEDS: DOCUSATE SODIUM 100 MG CAPSULE PO SCH ×2 (08:35→20:46)
[2023-08-08] MEDS: SENNOSIDES 8.6 MG TABLET PO SCH ×2 (08:36→20:46)
[2023-08-08] MEDS ORDERED: MODAFINIL 200 MG PO SCH (09:00)
[2023-08-08] MEDS ORDERED: EMPAGLIFLOZIN 10 MG TABLET PO SCH (09:00)
[2023-08-08] MEDS ORDERED: NON-FORMULARY MEDICATION 1 EA EA (Empagliflozin (Jardiance) 25 MG) PO SCH (09:00)
--- NOTE | 2023-08-08 09:14 | Progress Note ---
ROSEANNA MARTE 08/08/23 0914: Progress Note Stas Bradshaw is a 58 year old male with a history of CAD, DMII, HTN, Hyperlipidemia, and obstructed sleep apnea who presented himself to the ED on 08/06 at 1800H due to lower GI bleeding. The pt had a colonoscopy with polypectomy on 07/[address] Trejo. 3 days after the surgery the pt started his plavix. He stopped taking the plavix upon admission. On 08/06 pt got NS, Iohexol injection, started on a clear liquid diet and consulted cardiology. Cardiology was consulted and Dr. Carlson saw him. Pt is scheduled for an outpatient stress test in two weeks. We have been monitoring the Hgb. On admission it was 15.3, 08/07 it was 13.4, and today (08/08) it was 12.8. Today the patient is doing very well. He states how he is feeling stronger and not as weak. His last BM was around 1000H and he saw some blood clots. He describes the blood seen in his BM as improving. He isn't sure if it is the last of the bleeding or if it is improving. He verbalized how he is not complaining of any pain or any concerning symptoms. He is open to the idea of staying longer if it is necessary, he is not in a hurry to leave. We will discuss with Dr. Trejo what his treatment plan is. WANDY SCHROEDER DO 08/08/232106: Supervisory-Addendum Brief Verification & Attestation Participated in pt care: history, MDM, physical Personally performed: exam, history, MDM, supervision of care Care discussed with: Medical Student Procedures: n/a Results interpretation: Verified all documentation Verification and Attestation of Medical Student E/M Service A medical student performed and documented this service in my presence. I reviewed and verified all information documented by the medical student and made modifications to such information, when appropriate. I personally performed the physical exam and medical decision making. Wandy Schroeder, Aug 08, 2023,21:07 ROSEANNA MARTE Aug 08, 2023 09:14 WANDY SCHROEDER DO Aug 08, 2023 21:07
[2023-08-08 11:30] VITALS: BP 130/69
[2023-08-08] MEDS ORDERED: CLOP75TA28 PO (12:33)
[2023-08-08] MEDS ORDERED: ASPI-1238 PO (12:33)
--- NOTE | 2023-08-08 12:33 | Discharge Summary ---
Diagnosis/Chief Complaint Date of Admission Aug 06, 2023 at 22:25 Date of Discharge Discharge Date: Aug 08, 2023 Discharge Diagnosis Hematochezia post colonoscopy with polypectomy restarted Plavix and aspirin after 3 days Discharge Summary Discharge Physical Examination Allergies: Coded Allergies: adhesive tape (Unverified Allergy, Mild, 03/03/21) turns red Vitals & I&Os Vital Signs Date Time Temp Pulse Resp B/P (MAP) Pulse Ox O2 Delivery O2 Flow Rate FiO2 08/08/23 20:24 36.6 66 18 147/69 (95) 95 Room Air 08/06/23 22:44 21 Hospital Course Was the Problem List Reviewed?: Yes Delay discharge Labs (last 24 hrs) Laboratory Tests 08/06/23 17:58: White Blood Count 8.3, Red Blood Count 5.37, Hemoglobin 15.3, Hematocrit 46, Mean Corpuscular Volume 86, Mean Corpuscular Hemoglobin 29, Mean Corpuscular Hemoglobin Concent 33, Red Cell Distribution Width 14.8H, Platelet Count 225, Mean Platelet Volume 10.4, Immature Granulocyte % (Auto) 1, Neutrophils (%) (Auto) 68, Lymphocytes (%) (Auto) 20, Monocytes (%) (Auto) 8, Eosinophils (%) (Auto) 2, Basophils (%) (Auto) 1, Neutrophils # (Auto) 5.6, Lymphocytes # (Auto) 1.7, Monocytes # (Auto) 0.7, Eosinophils # (Auto) 0.2, Basophils # (Auto) 0.1, Immature Granulocyte # (Auto) 0.1, Prothrombin Time 13.2, INR Comment 1.0, Activated Partial Thromboplast Time 25, Sodium Level 136, Potassium Level 4.0, Chloride Level 105, Carbon Dioxide Level 17L, Anion Gap 14, Blood Urea Nitrogen 23H, Creatinine 0.88, Estimat Glomerular Filtration Rate 100, BUN/Creatinine Ratio 26, Glucose Level 190H, Calcium Level 9.3, Corrected Calcium 9.0, Mag nesium Level 1.9, Total Bilirubin < 0.1L, Aspartate Amino Transf (AST/SGOT) 14, Alanine Aminotransferase (ALT/SGPT) 21, Alkaline Phosphatase 45, Total Protein 6.8, Albumin 4.4 08/06/23 18:08: Urine Color YELLOW, Urine Clarity CLEAR, Urine pH 5.0, Urine Specific [place] 1.015L, Urine Protein NEGATIVE, Urine Glucose (UA) 3+H, Urine Ketones 1+H, Urine Nitrite NEGATIVE, Urine Bilirubin NEGATIVE, Urine Urobilinogen 0.2, Urine Leukocyte Esterase NEGATIVE, Urine RBC (Auto) TRACEH, Urine RBC NONE, Urine WBC NONE, Urine Squamous Epithelial Cells RARE, Urine Crystals NONE, Urine Bacteria NEGATIVE, Urine Casts NONE, Urine Mucus NEGATIVE, Urine Culture Indicated NO 08/07/23 04:25: White Blood Count 7.2, Red Blood Count 4.80, Hemoglobin 13.4, Hematocrit 42, Mean Corpuscular Volume 87, Mean Corpuscular Hemoglobin 28, Mean Corpuscular Hemoglobin Concent 32, Red Cell Distribution Width 14.8H, Platelet Count 189, Mean Platelet Volume 10.4, Immature Granulocyte % (Auto) 1, Neutrophils (%) (Auto) 62, Lymphocytes (%) (Auto) 22, Monocytes (%) (Auto) 11, Eosinophils (%) (Auto) 3, Basophils (%) (Auto) 1, Neutrophils # (Auto) 4.5, Lymphocytes # (Auto) 1.6, Monocytes # (Auto) 0.8, Eosinophils # (Auto) 0.2, Basophils # (Auto) 0.0, Immature Granulocyte # (Auto) 0.1, Sodium Level 136, Potassium Level 3.9, Chloride Level 105, Carbon Dioxide Level 19L, Anion Gap 12, Blood Urea Nitrogen 18, Creatinine 0.79, Estimat Glomerular Filtration Rate 103, BUN/Creatinine Ratio 23, Glucose Level 117H, Calcium Level 8.4L, Corrected Calcium 8.6, Total Bilirubin 0.7, Aspartate Amino Transf (AST/SGOT) 12, Alanine Aminotransferase (ALT/SGPT) 16, Alkaline Phosphatase 37L, Total Protein 5.8L, Albumin 3.8 08/07/23 10:36: Glucometer 133H 08/07/23 17:08: Glucometer 103 08/07/23 21:39: Glucometer 126H 08/08/23 05:46: White Blood Count 6.1, Red Blood Count 4.62, Hemoglobin 12.8L, Hematocrit 40, Mean Corpuscular Volume 87, Mean Corpuscular Hemoglobin 28, Mean Corpuscular Hemoglobin Concent 32, Red Cell Distribution Width 14.7H, Platelet Count 200, Mean Platelet Volume 10.7, Immature Granulocyte % (Auto) 1, Neutrophils (%) (Auto) 60, Lymphocytes (%) (Auto) 25, Monocytes (%) (Auto) 10, Eosinophils (%) (Auto) 3, Basophils (%) (Auto) 1, Neutrophils # (Auto) 3.7, Lymphocytes # (Auto) 1.5, Monocytes # (Auto) 0.6, Eosinophils # (Auto) 0.2, Basophils # (Auto) 0.0, Immature Granulocyte # (Auto) 0.1, Sodium Level 138, Potassium Level 3.8, Chloride Level 108H, Carbon Dioxide Level 22, Anion Gap 8, Blood Urea Nitrogen 11, Creatinine 0.81, Estimat Glomerular Filtration Rate 102, BUN/Creatinine Ratio 14, Glucose Level 121H, Calcium Level 8.4L, Corrected Calcium 8.6, Total Bilirubin 0.6, Aspartate Amino Transf (AST/SGOT) 15, Alanine Aminotransferase (ALT/SGPT) 23, Alkaline Phosphatase 36L, Total Protein 5.7L, Albumin 3.8 08/08/23 12:00: Glucometer 123H 08/08/23 16:30: Glucometer 100 08/08/23 20:22: Glucometer 96 Pending Labs Laboratory Tests 08/06/23 17:58: White Blood Count 8.3, Red Blood Count 5.37, Hemoglobin 15.3, Hematocrit 46, Mean Corpuscular Volume 86, Mean Corpuscular Hemoglobin 29, Mean Corpuscular Hemoglobin Concent 33, Red Cell Distribution Width 14.8, Platelet Count 225, Mean Platelet Volume 10.4, Immature Granulocyte % (Auto) 1, Neutrophils (%) (Auto) 68, Lymphocytes (%) (Auto) 20, Monocytes (%) (Auto) 8, Eosinophils (%) (Auto) 2, Basophils (%) (Auto) 1, Neutrophils # (Auto) 5.6, Lymphocytes # (Auto) 1.7, Monocytes # (Auto) 0.7, Eosinophils # (Auto) 0.2, Basophils # (Auto) 0.1, Immature Granulocyte # (Auto) 0.1, Prothrombin Time 13.2, INR Comment 1.0, Activated Partial Thromboplast Time 25, Sodium Level 136, Potassium Level 4.0, Chloride Level 105, Carbon Dioxide Level 17, Anion Gap 14, Blood Urea Nitrogen 23, Creatinine 0.88, Estimat Glomerular Filtration Rate 100, BUN/Creatinine Ratio 26, Glucose Level 190, Calcium Level 9.3, Corrected Calcium 9.0, Magnesium Level 1.9, Total Bilirubin < 0.1, Aspartate Amino Transf (AST/SGOT) 14, Alanine Aminotransferase (ALT/SGPT) 21, Alkaline Phosphatase 45, Total Protein 6.8, Albumin 4.4 08/06/23 18:08: Urine Color YELLOW, Urine Clarity CLEAR, Urine pH 5.0, Urine Specific [place] 1.015, Urine Protein NEGATIVE, Urine Glucose (UA) 3+, Urine Ketones 1+, Urine Nitrite NEGATIVE, Urine Bilirubin NEGATIVE, Urine Urobilinogen 0.2, Urine Leukocyte Esterase NEGATIVE, Urine RBC (Auto) TRACE, Urine RBC NONE, Urine WBC NONE, Urine Squamous Epithelial Cells RARE, Urine Crystals NONE, Urine Bacteria NEGATIVE, Urine Casts NONE, Urine Mucus NEGATIVE, Urine Culture Indicated NO 08/07/23 04:25: White Blood Count 7.2, Red Blood Count 4.80, Hemoglobin 13.4, Hematocrit 42, Mean Corpuscular Volume 87, Mean Corpuscular Hemoglobin 28, Mean Corpuscular Hemoglobin Concent 32, Red Cell Distribution Width 14.8, Platelet Count 189, Mean Platelet Volume 10.4, Immature Granulocyte % (Auto) 1, Neutrophils (%) (Auto) 62, Lymphocytes (%) (Auto) 22, Monocytes (%) (Auto) 11, Eosinophils (%) (Auto) 3, Basophils (%) (Auto) 1, Neutrophils # (Auto) 4.5, Lymphocytes # (Auto) 1.6, Monocytes # (Auto) 0.8, Eosinophils # (Auto) 0.2, Basophils # (Auto) 0.0, Immature Granulocyte # (Auto) 0.1, Sodium Level 136, Potassium Level 3.9, Chloride Level 105, Carbon Dioxide Level 19, Anion Gap 12, Blood Urea Nitrogen 18, Creatinine 0.79, Estimat Glomerular Filtration Rate 103, BUN/Creatinine Ratio 23, Glucose Level 117, Calcium Level 8.4, Corrected Calcium 8.6, Total Bilirubin 0.7, Aspartate Amino Transf (AST/SGOT) 12, Alanine Aminotransferase (ALT/SGPT) 16, Alkaline Phosphatase 37, Total Protein 5.8, Albumin 3.8 08/07/23 10:36: Glucometer 133 08/07/23 17:08: Glucometer 103 08/07/23 21:39: Glucometer 126 08/08/23 05:46: White Blood Count 6.1, Red Blood Count 4.62, Hemoglobin 12.8, Hematocrit 40, Mean Corpuscular Volume 87, Mean Corpuscular Hemoglobin 28, Mean Corpuscular Hemoglobin Concent 32, Red Cell Distribution Width 14.7, Platelet Count 200, Mean Platelet Volume 10.7, Immature Granulocyte % (Auto) 1, Neutrophils (%) (Auto) 60, Lymphocytes (%) (Auto) 25, Monocytes (%) (Auto) 10, Eosinophils (%) (Auto) 3, Basophils (%) (Auto) 1, Neutrophils # (Auto) 3.7, Lymphocytes # (Auto) 1.5, Monocytes # (Auto) 0.6, Eosinophils # (Auto) 0.2, Basophils # (Auto) 0.0, Immature Granulocyte # (Auto) 0.1, Sodium Level 138, Potassium Level 3.8, Chloride Level 108, Carbon Dioxide Level 22, Anion Gap 8, Blood Urea Nitrogen 11, Creatinine 0.81, Estimat Glomerular Filtration Rate 102, BUN/Creatinine Ratio 14, Glucose Level 121, Calcium Level 8.4, Corrected Calcium 8.6, Total Bilirubin 0.6, Aspartate Amino Transf (AST/SGOT) 15, Alanine Aminotransferase (ALT/SGPT) 23, Alkaline Phosphatase 36, Total Protein 5.7, Albumin 3.8 08/08/23 12:00: Glucometer 123 08/08/23 16:30: Glucometer 100 08/08/23 20:22: Glucometer 96 Discharge Home Medications: Active Scripts Active Clopidogrel (Clopidogrel Bisulfate) 75 Mg Tablet 75 Mg PO DAILY 7 Days Hold for 7 days Aspirin EC (Aspirin) 81 Mg Tablet.dr 81 Mg PO DAILY 7 Days Hold for 7 days Reported Lovaza ([place]-3 Acid Ethyl Esters) 1 Gram Capsule 2 Gm PO BID TAKES 2 (1GM) CAPS Tylenol Extra Strength (Acetaminophen) 500 Mg Tablet 1,000 Mg PO Q8H PRN Nitroglycerin 0.4 Mg Tab.subl 0.4 Mg SL UD PRN Pantoprazole Sodium 40 Mg Tablet.dr 40 Mg PO DAILY Amphetamine Salts 10 mg Tablet (Dextroamphetamine/Amphetamine) 10 Mg Tablet 10 Mg PO 0900,1300 Metformin HCl 1,000 Mg Tablet 1,000 Mg PO BID Lisinopril 20 Mg Tablet 20 Mg PO HS Trulicity (Dulaglutide) 1.5 Mg/0.5 Ml Pen.injctr 1.5 Mg SQ SUN Spironolactone 25 Mg Tablet 25 Mg PO DAILY Modafinil 200 Mg Tablet 200 Mg PO DAILY Jardiance (Empagliflozin) 25 Mg Tablet 25 Mg PO DAILY Carvedilol 25 Mg Tablet 25 Mg PO BID Atorvastatin Calcium 80 Mg Tablet 80 Mg PO HS Instructions to patient/family Please see electronic discharge instructions given to patient. Clinical Quality Measures DVT/VTE Risk/Contraindication: Contraindications-Pharm: Other *list below* Other: LUCY LOTT DO Aug 08, 2023 12:33
[2023-08-08 16:31] VITALS: BP 144/68
[2023-08-08 20:24] VITALS: BP 147/69
--- NOTE | 2023-08-08 21:12 | Progress Note ---
Subjective Date Seen by a Provider: Aug 08, 2023 Time Seen by a Provider: 11:00 Subjective/Events-last exam Patient doing pretty well BM today had some clots No pain Awaiting Dr. Trejo for decision on discharge Sats Bradshaw is a 58 year old male with a history of CAD, DMII, HTN, Hyperlipidemia, and obstructed sleep apnea who presented himself to the ED on 08/06 at 1800H due to lower GI bleeding. The pt had a colonoscopy with p olypectomy on 07/[address] Trejo. 3 days after the surgery the pt started his plavix. He stopped taking the plavix upon admission. On 08/06 pt got NS, Iohexol injection, started on a clear liquid diet and consulted cardiology. Cardiology was consulted and Dr. Carlson saw him. Pt is scheduled for an outpatient stress test in two weeks. We have been monitoring the Hgb. On admission it was 15.3, 08/07 it was 13.4, and today (08/08) it was 12.8. Today the patient is doing very well. He states how he is feeling stronger and not as weak. His last BM was around 1000H and he saw some blood clots. He describes the blood seen in his BM as improving. He isn't sure if it is the last of the bleeding or if it is improving. He verbalized how he is not complaining of any pain or any concerning symptoms. He is open to the idea of staying longer if it is necessary, he is not in a hurry to leave. We will discuss with Dr. Trejo what his treatment plan is. Review of Systems General: Fatigue, Malaise Gastrointestinal: Hematochezia Objective Exam Last Set of Vital Signs Vital Signs Date Time Temp Pulse Resp B/P (MAP) Pulse Ox O2 Delivery O2 Flow Rate FiO2 08/08/23 20:24 36.6 66 18 147/69 (95) 95 Room Air 08/06/23 22:44 21 Capillary Refill : Less Than 3 Seconds I&O Intake and Output 08/08/23 00:00 Intake Total 3900 ml Output Total 100 ml Balance 3800 ml Intake Oral 2900 ml IV Total 1000 ml Output Urine Total 100 ml # Voids 6 # Bowel Movements 3 General: Alert, Oriented X3, Cooperative, No Acute Distress Lungs: Clear to Auscultation, Normal Air Movement Heart: Regular Rate, Normal S1, Normal S2, No Murmurs Psych/Mental Status: Mental Status NL, Mood NL Results Lab Laboratory Tests 08/07/23 21:39: Glucometer 126H 08/08/23 05:46: White Blood Count 6.1, Red Blood Count 4.62, Hemoglobin 12.8L, Hematocrit 40, Mean Corpuscular Volume 87, Mean Corpuscular Hemoglobin 28, Mean Corpuscular Hemoglobin Concent 32, Red Cell Distribution Width 14.7H, Platelet Count 200, Mean Platelet Volume 10.7, Immature Granulocyte % (Auto) 1, Neutrophils (%) (Auto) 60, Lymphocytes (%) (Auto) 25, Monocytes (%) (Auto) 10, Eosinophils (%) (Auto) 3, Basophils (%) (Auto) 1, Neutrophils # (Auto) 3.7, Lymphocytes # (Auto) 1.5, Monocytes # (Auto) 0.6, Eosinophils # (Auto) 0.2, Basophils # (Auto) 0.0, Immature Granulocyte # (Auto) 0.1, Sodium Level 138, Potassium Level 3.8, Chloride Level 108H, Carbon Dioxide Level 22, Anion Gap 8, Blood Urea Nitrogen 11, Creatinine 0.81, Estimat Glomerular Filtration Rate 102, BUN/Creatinine Ratio 14, Glucose Level 121H, Calcium Level 8.4L, Corrected Calcium 8.6, Total Bilirubin 0.6, Aspartate Amino Transf (AST/SGOT) 15, Alanine Aminotransferase (ALT/SGPT) 23, Alkaline Phosphatase 36L, Total Protein 5.7L, Albumin 3.8 08/08/23 12:00: Glucometer 123H 08/08/23 16:30: Glucometer 100 08/08/23 20:22: Glucometer 96 Assessment/Plan Assessment/Plan Assess & Plan/Chief Complaint Assessment: GI bleed following colonoscopy with polypectomy restarted Plavix and aspirin after 3 days Acute blood loss anemia GIRISH on CPAP Diabetes Hypertension Hyperlipidemia CAD previous stent Plan: Monitor hemoglobin Await discharge plan Diagnosis/Problems Diagnosis/Problems (1) GI bleed (2) Hx of colonic polyps Clinical Quality Measures Admission Status Admission Dx Hematochezia GI bleed post colonoscopy with polypectomy CAD restarted Plavix and aspirin 3 days after colonoscopy Monitor closely DVT/VTE Risk/Contraindication: Contraindications-Pharm: Other *list below* Other: LUCY LOTT DO Aug 08, 2023 21:12
[2023-08-08 23:01] VITALS: BP 110/62
[2023-08-09 04:34] VITALS: BP 117/67
[2023-08-09 05:22] LABS: BASOPHILS # (AUTO) 0.1 10^3/uL (0.0-0.1); BASOPHILS % (AUTO) 1 % (0-10); EOSINOPHILS # (AUTO) 0.2 10^3/uL (0.0-0.3); EOSINOPHILS % (AUTO) 2 % (0-10); HEMATOCRIT 42 % (40-54); HEMOGLOBIN 13.1 g/dL (13.3-17.7); LYMPHOCYTES # (AUTO) 1.6 10^3/uL (1.0-4.0); LYMPHOCYTES % (AUTO) 21 % (12-44); MEAN CORPUSCULAR HEMOGLOBIN 28 pg (25-34); MEAN CORPUSCULAR HGB CONC 32 g/dL (32-36); MEAN CORPUSCULAR VOLUME 87 fL (80-99); MEAN PLATELET VOLUME 10.4 fL (9.0-12.2); MONOCYTES # (AUTO) 0.7 10^3/uL (0.0-1.0); MONOCYTES % (AUTO) 9 % (0-12); NEUTROPHILS # (AUTO) 5.2 10^3/uL (1.8-7.8); NEUTROPHILS % (AUTO) 67 % (42-75); PLATELET COUNT 201 10^3/uL (130-400); WHITE BLOOD COUNT 7.8 10^3/uL (4.3-11.0)
[2023-08-09 05:34] LABS: ALBUMIN 3.8 GM/DL (3.2-4.5); POTASSIUM 3.7 MMOL/L (3.6-5.0)
[2023-08-09 05:35] LABS: CALCIUM 8.6 MG/DL (8.5-10.1)
[2023-08-09 05:36] LABS: TOTAL PROTEIN 5.9 GM/DL (6.4-8.2)
[2023-08-09 05:38] LABS: BILIRUBIN,TOTAL 0.7 MG/DL (0.1-1.0)
[2023-08-09] MEDS: inSUlin ASPART 1 UNIT/0.01 ML (PER UNIT) SC SCH ×2 (05:38→11:03)
[2023-08-09 05:40] LABS: CREATININE SERUM 0.84 MG/DL (0.60-1.30)
--- NOTE | 2023-08-09 05:58 | Progress Note - Surgery ---
Subjective Date Seen by a Provider: Aug 09, 2023 Objective Exam Vital Signs Date Time Temp Pulse Resp B/P (MAP) Pulse Ox O2 Delivery O2 Flow Rate FiO2 08/09/23 04:34 36.4 60 18 117/67 (84) 96 NIV CPAP 08/08/23 23:01 36.4 67 18 110/62 (78) 95 Room Air 08/08/23 20:50 Room Air 08/08/23 20:24 36.6 66 18 147/69 (95) 95 Room Air 08/08/23 19:42 Room Air 08/08/23 16:31 36.4 69 18 144/68 (93) 95 Room Air 08/08/23 11:30 36.4 64 18 130/69 (89) 95 Room Air 08/08/23 08:52 Room Air 08/08/23 07:37 36.5 65 18 112/58 (76) 95 Room Air I & O 08/09/23 07:00 Intake Total 5490 ml Output Total 1925 ml Balance 3565 ml Capillary Refill : Less Than 3 Seconds General Appearance: No Apparent Distress, Obese HEENT: PERRL/EOMI, Normal ENT Inspection Neck: Non Tender, Supple Respiratory: Chest Non Tender, No Accessory Muscle Use, No Respiratory Distress Cardiovascular: Regular Rate, Rhythm, No JVD Gastrointestinal: non tender, soft Extremity: Normal Capillary Refill, Non Tender Neurologic/Psychiatric: Alert, Oriented x3 Skin: Normal Color, Warm/Dry Lymphatic: No Adenopathy Results Lab Laboratory Tests 08/08/23 12:00: Glucometer 123H 08/08/23 16:30: Glucometer 100 08/08/23 20:22: Glucometer 96 08/09/23 05:14: White Blood Count 7.8, Red Blood Count 4.75, Hemoglobin 13.1L, Hematocrit 42, Mean Corpuscular Volume 87, Mean Corpuscular Hemoglobin 28, Mean Corpuscular Hemoglobin Concent 32, Red Cell Distribution Width 14.8H, Platelet Count 201, Mean Platelet Volume 10.4, Immature Granulocyte % (Auto) 1, Neutrophils (%) (Auto) 67, Lymphocytes (%) (Auto) 21, Monocytes (%) (Auto) 9, Eosinophils (%) (Auto) 2, Basophils (%) (Auto) 1, Neutrophils # (Auto) 5.2, Lymphocytes # (Auto) 1.6, Monocytes # (Auto) 0.7, Eosinophils # (Auto) 0.2, Basophils # (Auto) 0.1, Immature Granulocyte # (Auto) 0.1, Sodium Level 137, Potassium Level 3.7, Chloride Level 108H, Carbon Dioxide Level 18L, Anion Gap 11, Blood Urea Nitrogen 10, Creatinine 0.84, Estimat Glomerular Filtration Rate 101, BUN/Creatinine Ratio 12, Glucose Level 116H, Calcium Level 8.6, Corrected Calcium 8.8, Total Bilirubin 0.7, Aspartate Amino Transf (AST/SGOT) 17, Alanine Aminotransferase (ALT/SGPT) 23, Alkaline Phosphatase 39L, Total Protein 5.9L, Albumin 3.8 Assessment/Plan Assessment/Plan Assessment/Plan Assessment: GI bleed following colonoscopy with polypectomy restarted Plavix and aspirin after 3 days Plan: Monitor hemoglobin Await discharge plan Clinical Quality Measures DVT/VTE Risk/Contraindication: Contraindications-Pharm: Other *list below* Other: BRITTANY GIL Aug 09, 2023 05:58
[2023-08-09 07:13] VITALS: BP 121/77
--- NOTE | 2023-08-09 07:14 | Progress Note - Surgery ---
BRITTANY RODRIGUEZ 08/09/23 0714: Subjective Date Seen by a Provider: Aug 09, 2023 Time Seen by a Provider: 06:45 Subjective/Events-last exam Pt is resting comfortably in chair. Hgb is stable at 13.1. No new concerns. Last BM was yesterday at 10am that had minor amount of blood. Denies nausea, vomiting , abdominal pain, chest pain, fever, SOA. Objective Exam Vital Signs Date Time Temp Pulse Resp B/P (MAP) Pulse Ox O2 Delivery O2 Flow Rate FiO2 08/09/23 04:34 36.4 60 18 117/67 (84) 96 NIV CPAP 08/08/23 23:01 36.4 67 18 110/62 (78) 95 Room Air 08/08/23 20:50 Room Air 08/08/23 20:24 36.6 66 18 147/69 (95) 95 Room Air 08/08/23 19:42 Room Air 08/08/23 16:31 36.4 69 18 144/68 (93) 95 Room Air 08/08/23 11:30 36.4 64 18 130/69 (89) 95 Room Air 08/08/23 08:52 Room Air 08/08/23 07:37 36.5 65 18 112/58 (76) 95 Room Air I & O 08/09/23 07:00 Intake Total 5490 ml Output Total 1925 ml Balance 3565 ml Capillary Refill : Less Than 3 Seconds General Appearance: No Apparent Distress, Obese HEENT: PERRL/EOMI, Normal ENT Inspection Neck: Non Tender, Supple Respiratory: Chest Non Tender, No Accessory Muscle Use, No Respiratory Distress Cardiovascular: Regular Rate, Rhythm, No JVD Gastrointestinal: non tender, soft Extremity: Normal Capillary Refill, Non Tender Neurologic/Psychiatric: Alert, Oriented x3 Skin: Normal Color, Warm/Dry Lymphatic: No Adenopathy Results Lab Laboratory Tests 08/08/23 12:00: Glucometer 123H 08/08/23 16:30: Glucometer 100 08/08/23 20:22: Glucometer 96 08/09/23 05:14: White Blood Count 7.8, Red Blood Count 4.75, Hemoglobin 13.1L, Hematocrit 42, Mean Corpuscular Volume 87, Mean Corpuscular Hemoglobin 28, Mean Corpuscular Hemoglobin Concent 32, Red Cell Distribution Width 14.8H, Platelet Count 201, Mean Platelet Volume 10.4, Immature Granulocyte % (Auto) 1, Neutrophils (%) (Auto) 67, Lymphocytes (%) (Auto) 21, Monocytes (%) (Auto) 9, Eosinophils (%) (Auto) 2, Basophils (%) (Auto) 1, Neutrophils # (Auto) 5.2, Lymphocytes # (Auto) 1.6, Monocytes # (Auto) 0.7, Eosinophils # (Auto) 0.2, Basophils # (Auto) 0.1, Immature Granulocyte # (Auto) 0.1, Sodium Level 137, Potassium Level 3.7, Chloride Level 108H, Carbon Dioxide Level 18L, Anion Gap 11, Blood Urea Nitrogen 10, Creatinine 0.84, Estimat Glomerular Filtration Rate 101, BUN/Creatinine Ratio 12, Glucose Level 116H, Calcium Level 8.6, Corrected Calcium 8.8, Total Bilirubin 0.7, Aspartate Amino Transf (AST/SGOT) 17, Alanine Aminotransferase (ALT/SGPT) 23, Alkaline Phosphatase 39L, Total Protein 5.9L, Albumin 3.8 Assessment/Plan Assessment/Plan Assessment/Plan Assessment: GI bleed following colonoscopy with polypectomy restarted Plavix and aspirin after 3 days Acute blood loss anemia GIRISH on CPAP Diabetes Hypertension Hyperlipidemia CAD previous stent Plan: Monitor hemoglobin- Hgb is stable at 13.1 Discharge home today Clinical Quality Measures DVT/VTE Risk/Contraindication: Contraindications-Pharm: Other *list below* Other: PATSY MAURICE DO 08/09/23 0850: Subjective Subjective/Events-last exam Patient doing well. No more bloody bowel movements. Hgb stable. No new complaints. Denies n/v fever sweats chills shortness of breath or chest pain. Objective Exam General Appearance: No Apparent Distress, Obese HEENT: PERRL/EOMI, Normal ENT Inspection Neck: Non Tender, Supple Respiratory: Chest Non Tender, No Accessory Muscle Use, No Respiratory Distress Cardiovascular: Regular Rate, Rhythm, No JVD Gastrointestinal: non tender, soft Extremity: Normal Capillary Refill, Non Tender Neurologic/Psychiatric: Alert, Oriented x3 Skin: Normal Color, Warm/Dry Lymphatic: No Adenopathy Assessment/Plan Assessment/Plan Assessment/Plan Lower gi bleed Post polypectomy bleed penitentiary antiplatelet Hold Plavix/ASA 1 week Hgb stable Diet as tolerates home with outpatient follow up Supervisory-Addendum Brief Verification & Attestation Participated in pt care: history, MDM, physical Personally performed: exam, history, MDM, supervision of care Care discussed with: Medical Student Procedures: n/a Results interpretation: Verified all documentation Verification and Attestation of Medical Student E/M Service A medical student performed and documented this service in my presence. I reviewed and verified all information documented by the medical student and made modifications to such information, when appropriate. I personally performed the physical exam and medical decision making. Patsy Trejo, Aug 09, 2023,08:50 BRITTANY RODRIGUEZ Aug 09, 2023 07:14 PATSY TREJO DO Aug 09, 2023 08:50
[2023-08-09] MEDS: SPIRONOLACTONE 25 MG TABLET PO SCH (08:43)
[2023-08-09] MEDS: DOCUSATE SODIUM 100 MG CAPSULE PO SCH (08:43)
[2023-08-09] MEDS: PANTOPRAZOLE 40 MG TABLET PO SCH (08:43)
[2023-08-09] MEDS: CARVEDILOL 25 MG TAB PO SCH (08:43)
[2023-08-09] MEDS: SENNOSIDES 8.6 MG TABLET PO SCH (08:43)
[2023-08-09] MEDS: JARDIANCE 25 MG TAB PO SCH (08:44)
--- NOTE | 2023-08-09 08:45 | Cardiology Progress Note ---
Subjective Date Seen by Provider: Aug 09, 2023 Time Seen by Provider: 08:44 Subjective/Events-last exam Patient is sitting up in bed, no new complaints. Denies any chest pain Objective-Cardiology Exam Last Set of Vital Signs Vital Signs 08/06/23 08/09/23 22:44 07:13 Temp 36.2 Pulse 67 Resp 18 B/P (MAP) 121/77 (92) Pulse Ox 95 O2 Delivery Room Air FiO2 21 I&O Intake and Output 08/09/23 00:00 Intake Total 5390 ml Output Total 3225 ml Balance 2165 ml Intake Oral 4155 ml IV Total 1235 ml Output Urine Total 3225 ml # Voids 5 # Bowel Movements 1 General: Alert, Oriented X3, Cooperative, No Acute Distress HEENT: Atraumatic Neck: Supple Lungs: Clear to Auscultation, Normal Air Movement Heart: Regular Rate, Normal S1, Normal S2, No Murmurs Abdomen: Normal Bowel Sounds, Soft Extremities: No Edema Neuro: Normal Gait Psych/Mental Status: Mental Status NL, Mood NL Results Lab Laboratory Tests 08/09/23 05:14 A/P-Cardiology Admission Diagnosis GI bleed CAD HTN HLP Assessment/Plan GI bleed, recent colonoscopy done last week. Noted to have blood in stool post colonoscopy, reporting improvement. Management per Dr. Trejo Coronary artery disease, history of old myocardial infarction, Reporting cardiac catheterization done in 2005 and had [employer] of the circumflex artery and the lesion in the ostial diagonal artery, had right to left and left to left collaterals. Referred to [facility] with Dr. Wolf, underwent extensive attempt to revascularize that has failed in 2005. Underwent LHC on 07/23/21 with severe stenosis in the mid LAD with successful st enting using Nuvia 3.5x23mm. He is doing well. Continue to monitor Scheduled for stress test as outpatient in 2 weeks. Will hold Plavix and ASA at this time. Echocardiogram done on May 31, 2021 showing normal LV size, EF 55 to 65%, left atrium 3.36 cm, PA pressure 15 to 20 mmHg. GERD, maintained on Protonix. Continue to monitor History of radiation injury due to the extensive procedure in the [employer] resulted in recurrent skin lesion on the back. Hypertension, restart home blood pressure medication and continue to monitor. Hyperlipidemia, maintained on Lipitor 80 mg daily. Reports recent lipid profile done by PCP, I will try to obtain a copy for our records. Diabetes mellitus, followed and managed by primary care physician Hypertriglyceridemia, we discussed diet and limiting carbohydrate and tight diabetic control. BMI 41, we discussed weight loss and exercise. Tobaccoism, Encouraged to continue with smoking cessation Strong family history of heart disease with multiple family members with heart disease. Obstructive sleep apnea, using CPAP Supervisory-Addendum Brief Supervisory Addendum Participated in pt care: history, MDM, physical Personally performed: exam, history, MDM Care discussed with: AMANDA Results interpretation: Verified all documentation Notes: Patient was seen and evaluated with Moraima, examination performed, management plan was discussed, agree with the current scribed note, I made few changes to the note using Italic font Patient was seen at bedside, laying down comfortably, possible discharge today Denied any chest pain, planning for stress test as an outpatient Continue to hold aspirin and Plavix for now and monitor H&H Monitor blood pressure and lipids Okay for discharge from cardiology standpoint MORAIMA MUKHERJEE PA-C Aug 09, 2023 08:45 SHILO POLLARD MD Aug 09, 2023 11:07
[2023-08-09] MEDS: METFORMIN 1000 MG PO SCH (08:46)
[2023-08-09] MEDS: OMEGA ACID ETHYL ESTERS PO SCH (08:48)
--- NOTE | 2023-08-09 09:49 | Progress Note ---
ROSEANNA MARTE 08/09/23 0949: Progress Note Stas Bradshaw is a 58 year old male with a history of CAD, DMII, HTN, Hyperlipidemia, and obstructed sleep apnea who presented himself to the ED on 08/06 at 1800H due to lower GI bleeding. The pt had a colonoscopy with polypectomy on 07/[address] Trejo. 3 days after the surgery the pt started his plavix. He stopped taking the plavix upon admission. On 08/06 pt got NS, Iohexol injection, started on a clear liquid diet and consulted cardiology. CT of the pelvis with contrast was performed and found No acute abnormality in the abdomen or pelvis. No further imaging was indicated Cardiology was consulted and Dr. Carlson saw him. Pt is scheduled for an outpatient stress test in two weeks. We have been monitoring the Hgb. On admission it was 15.3, 08/07 it was 13.4, and on 08/[address] Trejo wanted to keep the patient one more night to ensure the Hgb would stabilize and no further complications would arise. Throughout the patients admission he was experience blood in his bowel movements that were decreasing during each episode. Pt denies any pain or lightheadedness during his BMs. On 08/09 the Hgb increased to 13.1. Pt has no complaints and is comfortable with being discharged. Pt has not had a BM today. Dr. Trejo told him to give him a call if the bleeding worsens so he can admit him. Pt is still not taking aspirin or plavix and will discuss with Dr. Trejo when to resume the medications. The patient is going to be discharged today. WANDY SCHROEDER DO 08/09/23 1825: Supervisory-Addendum Brief Verification & Attestation Participated in pt care: history, MDM, physical Personally performed: exam, history, MDM, supervision of care Care discussed with: Medical Student Procedures: n/a Results interpretation: Verified all documentation Verification and Attestation of Medical Student E/M Service A medical student performed and documented this service in my presence. I reviewed and verified all information documented by the medical student and made modifications to such information, when appropriate. I personally performed the physical exam and medical decision making. Wandy Schroeder, Aug 09, 2023,18:25 ROSEANNA MARTE Aug 09, 2023 09:49 WANDY SCHROEDER DO Aug 09, 2023 18:25
[2023-08-09 11:35] VITALS: BP 129/84
[2023-08-09] MEDS ORDERED: CLOP75TA28 PO (12:13)
[2023-08-09] MEDS ORDERED: ASPI-1238 PO (12:13)
--- NOTE | 2023-08-09 12:14 | Discharge Summary ---
Diagnosis/Chief Complaint Date of Admission Aug 06, 2023 at 22:25 Date of Discharge Discharge Date: Aug 09, 2023 Discharge Diagnosis Hematochezia due to polpectomy and Plavix and ASA taken 3 days after polyps removed Acute blood loss anemia Reason Hospital Visit Chief complaint: Hematochezia HPI this is a 58-year-old male with a history of CAD and stent placement 2 years ago maintained on Plavix and aspirin who had 2 colon polyps removed by Dr. Trejo during screening colonoscopy earlier in the week and then started on Plavix and aspirin 3 days afterwards and then began having hematochezia. We will monitor patient closely due to high risk for decompensation Discharge Summary Discharge Physical Examination Allergies: Coded Allergies: adhesive tape (Unverified Allergy, Mild, 03/03/21) turns red Vitals & I&Os Vital Signs Date Time Temp Pulse Resp B/P (MAP) Pulse Ox O2 Delivery O2 Flow Rate FiO2 08/09/23 13:47 08/09/23 11:35 36.7 65 18 94 Room Air 08/06/23 22:44 21 Hospital Course Was the Problem List Reviewed?: Yes Stas Bradshaw is a 58 year old male with a history of CAD, DMII, HTN, Hyperlipidemia, and obstructed sleep apnea who presented himself to the ED on 08/06 at 1800H due to lower GI bleeding. The pt had a colonoscopy with polypectomy on 07/[address] Trejo. 3 days after the surgery the pt started his plavix. He stopped taking the plavix upon admission. On 08/06 pt got NS, Iohexol injection, started on a clear liquid diet and consulted cardiology. CT of the pelvis with contrast was performed and found No acute abnormality in the abdomen or pelvis. No further imaging was indicated Cardiology was consulted and Dr. Carlson saw him. Pt is scheduled for an outpatient stress test in two weeks. We have been monitoring the Hgb. On admission it was 15.3, 08/07 it was 13.4, and on 08/[address] Trejo wanted to keep the patient one more night to ensure the Hgb would stabilize and no further complications would arise. Throughout the patients admission he was experience blood in his bowel movements that were decreasing during each episode. Pt denies any pain or lightheadedness during his BMs. On 08/09 the Hgb increased to 13.1. Pt has no complaints and is comfortable with being discharged. Pt has not had a BM today. Dr. Trejo told him to give him a call if the bleeding worsens so he can admit him. Pt is still not taking aspirin or plavix and will discuss with Dr. Trejo when to resume the medications. The patient is going to be discharged today. Labs (last 24 hrs) Laboratory Tests 08/06/23 17:58: White Blood Count 8.3, Red Blood Count 5.37, Hemoglobin 15.3, Hematocrit 46, Mean Corpuscular Volume 86, Mean Corpuscular Hemoglobin 29, Mean Corpuscular Hemoglobin Concent 33, Red Cell Distribution Width 14.8H, Platelet Count 225, Mean Platelet Volume 10.4, Immature Granulocyte % (Auto) 1, Neutrophils (%) (Auto) 68, Lymphocytes (%) (Auto) 20, Monocytes (%) (Auto) 8, Eosinophils (%) (Auto) 2, Basophils (%) (Auto) 1, Neutrophils # (Auto) 5.6, Lymphocytes # (Auto) 1.7, Monocytes # (Auto) 0.7, Eosinophils # (Auto) 0.2, Basophils # (Auto) 0.1, Immature Granulocyte # (Auto) 0.1, Prothrombin Time 13.2, INR Comment 1.0, Activated Partial Thromboplast Time 25, Sodium Level 136, Potassium Level 4.0, Chloride Level 105, Carbon Dioxide Level 17L, Anion Gap 14, Blood Urea Nitrogen 23H, Creatinine 0.88, Estimat Glomerular Filtration Rate 100, BUN/Creatinine Ratio 26, Glucose Level 190H, Calcium Level 9.3, Corrected Calcium 9.0, Magn esium Level 1.9, Total Bilirubin < 0.1L, Aspartate Amino Transf (AST/SGOT) 14, Alanine Aminotransferase (ALT/SGPT) 21, Alkaline Phosphatase 45, Total Protein 6.8, Albumin 4.4 08/06/23 18:08: Urine Color YELLOW, Urine Clarity CLEAR, Urine pH 5.0, Urine Specific Terry 1.015L, Urine Protein NEGATIVE, Urine Glucose (UA) 3+H, Urine Ketones 1+H, Urine Nitrite NEGATIVE, Urine Bilirubin NEGATIVE, Urine Urobilinogen 0.2, Urine Leukocyte Esterase NEGATIVE, Urine RBC (Auto) TRACEH, Urine RBC NONE, Urine WBC NONE, Urine Squamous Epithelial Cells RARE, Urine Crystals NONE, Urine Bacteria NEGATIVE, Urine Casts NONE, Urine Mucus NEGATIVE, Urine Culture Indicated NO 08/07/23 04:25: White Blood Count 7.2, Red Blood Count 4.80, Hemoglobin 13.4, Hematocrit 42, Mean Corpuscular Volume 87, Mean Corpuscular Hemoglobin 28, Mean Corpuscular Hemoglobin Concent 32, Red Cell Distribution Width 14.8H, Platelet Count 189, Mean Platelet Volume 10.4, Immature Granulocyte % (Auto) 1, Neutrophils (%) (Auto) 62, Lymphocytes (%) (Auto) 22, Monocytes (%) (Auto) 11, Eosinophils (%) (Auto) 3, Basophils (%) (Auto) 1, Neutrophils # (Auto) 4.5, Lymphocytes # (Auto) 1.6, Monocytes # (Auto) 0.8, Eosinophils # (Auto) 0.2, Basophils # (Auto) 0.0, Immature Granulocyte # (Auto) 0.1, Sodium Level 136, Potassium Level 3.9, Chloride Level 105, Carbon Dioxide Level 19L, Anion Gap 12, Blood Urea Nitrogen 18, Creatinine 0.79, Estimat Glomerular Filtration Rate 103, BUN/Creatinine Ratio 23, Glucose Level 117H, Calcium Level 8.4L, Corrected Calcium 8.6, Total Bilirubin 0.7, Aspartate Amino Transf (AST/SGOT) 12, Alanine Aminotransferase (ALT/SGPT) 16, Alkaline Phosphatase 37L, Total Protein 5.8L, Albumin 3.8 08/07/23 10:36: Glucometer 133H 08/07/23 17:08: Glucometer 103 08/07/23 21:39: Glucometer 126H 08/08/23 05:46: White Blood Count 6.1, Red Blood Count 4.62, Hemoglobin 12.8L, Hematocrit 40, Mean Corpuscular Volume 87, Mean Corpuscular Hemoglobin 28, Mean Corpuscular Hemoglobin Concent 32, Red Cell Distribution Width 14.7H, Platelet Count 200, Mean Platelet Volume 10.7, Immature Granulocyte % (Auto) 1, Neutrophils (%) (Auto) 60, Lymphocytes (%) (Auto) 25, Monocytes (%) (Auto) 10, Eosinophils (%) (Auto) 3, Basophils (%) (Auto) 1, Neutrophils # (Auto) 3.7, Lymphocytes # (Auto) 1.5, Monocytes # (Auto) 0.6, Eosinophils # (Auto) 0.2, Basophils # (Auto) 0.0, Immature Granulocyte # (Auto) 0.1, Sodium Level 138, Potassium Level 3.8, Chloride Level 108H, Carbon Dioxide Level 22, Anion Gap 8, Blood Urea Nitrogen 11, Creatinine 0.81, Estimat Glomerular Filtration Rate 102, BUN/Creatinine Ratio 14, Glucose Level 121H, Calcium Level 8.4L, Corrected Calcium 8.6, Total Bilirubin 0.6, Aspartate Amino Transf (AST/SGOT) 15, Alanine Aminotransferase (ALT/SGPT) 23, Alkaline Phosphatase 36L, Total Protein 5.7L, Albumin 3.8 08/08/23 12:00: Glucometer 123H 08/08/23 16:30: Glucometer 100 08/08/23 20:22: Glucometer 96 08/09/23 05:14: White Blood Count 7.8, Red Blood Count 4.75, Hemoglobin 13.1L, Hematocrit 42, Mean Corpuscular Volume 87, Mean Corpuscular Hemoglobin 28, Mean Corpuscular Hemoglobin Concent 32, Red Cell Distribution Width 14.8H, Platelet Count 201, Mean Platelet Volume 10.4, Immature Granulocyte % (Auto) 1, Neutrophils (%) (Auto) 67, Lymphocytes (%) (Auto) 21, Monocytes (%) (Auto) 9, Eosinophils (%) (Auto) 2, Basophils (%) (Auto) 1, Neutrophils # (Auto) 5.2, Lymphocytes # (Auto) 1.6, Monocytes # (Auto) 0.7, Eosinophils # (Auto) 0.2, Basophils # (Auto) 0.1, Immature Granulocyte # (Auto) 0.1, Sodium Level 137, Potassium Level 3.7, Chloride Level 108H, Carbon Dioxide Level 18L, Anion Gap 11, Blood Urea Nitrogen 10, Creatinine 0.84, Estimat Glomerular Filtration Rate 101, BUN/Creatinine Ratio 12, Glucose Level 116H, Calcium Level 8.6, Corrected Calcium 8.8, Total Bilirubin 0.7, Aspartate Amino Transf (AST/SGOT) 17, Alanine Aminotransferase (ALT/SGPT) 23, Alkaline Phosphatase 39L, Total Protein 5.9L, Albumin 3.8 08/09/23 10:37: Glucometer 103 Pending Labs Laboratory Tests 08/06/23 17:58: White Blood Count 8.3, Red Blood Count 5.37, Hemoglobin 15.3, Hematocrit 46, Mean Corpuscular Volume 86, Mean Corpuscular Hemoglobin 29, Mean Corpuscular Hemoglobin Concent 33, Red Cell Distribution Width 14.8, Platelet Count 225, Mean Platelet Volume 10.4, Immature Granulocyte % (Auto) 1, Neutrophils (%) (Auto) 68, Lymphocytes (%) (Auto) 20, Monocytes (%) (Auto) 8, Eosinophils (%) (Auto) 2, Basophils (%) (Auto) 1, Neutrophils # (Auto) 5.6, Lymphocytes # (Auto) 1.7, Monocytes # (Auto) 0.7, Eosinophils # (Auto) 0.2, Basophils # (Auto) 0.1, Immature Granulocyte # (Auto) 0.1, Prothrombin Time 13.2, INR Comment 1.0, Activated Partial Thromboplast Time 25, Sodium Level 136, Potassium Level 4.0, Chloride Level 105, Carbon Dioxide Level 17, Anion Gap 14, Blood Urea Nitrogen 23, Creatinine 0.88, Estimat Glomerular Filtration Rate 100, BUN/Creatinine Ratio 26, Glucose Level 190, Calcium Level 9.3, Corrected Calcium 9.0, Magnesium Level 1.9, Total Bilirubin < 0.1, Aspartate Amino Transf (AST/SGOT) 14, Alanine Aminotransferase (ALT/SGPT) 21, Alkaline Phosphatase 45, Total Protein 6.8, Albumin 4.4 08/06/23 18:08: Urine Color YELLOW, Urine Clarity CLEAR, Urine pH 5.0, Urine Specific Terry 1.015, Urine Protein NEGATIVE, Urine Glucose (UA) 3+, Urine Ketones 1+, Urine Nitrite NEGATIVE, Urine Bilirubin NEGATIVE, Urine Urobilinogen 0.2, Urine Leukocyte Esterase NEGATIVE, Urine RBC (Auto) TRACE, Urine RBC NONE, Urine WBC NONE, Urine Squamous Epithelial Cells RARE, Urine Crystals NONE, Urine Bacteria NEGATIVE, Urine Casts NONE, Urine Mucus NEGATIVE, Urine Culture Indicated NO 08/07/23 04:25: White Blood Count 7.2, Red Blood Count 4.80, Hemoglobin 13.4, Hematocrit 42, Mean Corpuscular Volume 87, Mean Corpuscular Hemoglobin 28, Mean Corpuscular Hemoglobin Concent 32, Red Cell Distribution Width 14.8, Platelet Count 189, Mean Platelet Volume 10.4, Immature Granulocyte % (Auto) 1, Neutrophils (%) (Auto) 62, Lymphocytes (%) (Auto) 22, Monocytes (%) (Auto) 11, Eosinophils (%) (Auto) 3, Basophils (%) (Auto) 1, Neutrophils # (Auto) 4.5, Lymphocytes # (Auto) 1.6, Monocytes # (Auto) 0.8, Eosinophils # (Auto) 0.2, Basophils # (Auto) 0.0, Immature Granulocyte # (Auto) 0.1, Sodium Level 136, Potassium Level 3.9, Chloride Level 105, Carbon Dioxide Level 19, Anion Gap 12, Blood Urea Nitrogen 18, Creatinine 0.79, Estimat Glomerular Filtration Rate 103, BUN/Creatinine Ratio 23, Glucose Level 117, Calcium Level 8.4, Corrected Calcium 8.6, Total Bilirubin 0.7, Aspartate Amino Transf (AST/SGOT) 12, Alanine Aminotransferase (ALT/SGPT) 16, Alkaline Phosphatase 37, Total Protein 5.8, Albumin 3.8 08/07/23 10:36: Glucometer 133 08/07/23 17:08: Glucometer 103 08/07/23 21:39: Glucometer 126 08/08/23 05:46: White Blood Count 6.1, Red Blood Count 4.62, Hemoglobin 12.8, Hematocrit 40, Mean Corpuscular Volume 87, Mean Corpuscular Hemoglobin 28, Mean Corpuscular Hemoglobin Concent 32, Red Cell Distribution Width 14.7, Platelet Count 200, Mean Platelet Volume 10.7, Immature Granulocyte % (Auto) 1, Neutrophils (%) (Auto) 60, Lymphocytes (%) (Auto) 25, Monocytes (%) (Auto) 10, Eosinophils (%) (Auto) 3, Basophils (%) (Auto) 1, Neutrophils # (Auto) 3.7, Lymphocytes # (Auto) 1.5, Monocytes # (Auto) 0.6, Eosinophils # (Auto) 0.2, Basophils # (Auto) 0.0, Immature Granulocyte # (Auto) 0.1, Sodium Level 138, Potassium Level 3.8, Chloride Level 108, Carbon Dioxide Level 22, Anion Gap 8, Blood Urea Nitrogen 11, Creatinine 0.81, Estimat Glomerular Filtration Rate 102, BUN/Creatinine Ratio 14, Glucose Level 121, Calcium Level 8.4, Corrected Calcium 8.6, Total Bilirubin 0.6, Aspartate Amino Transf (AST/SGOT) 15, Alanine Aminotransferase (ALT/SGPT) 23, Alkaline Phosphatase 36, Total Protein 5.7, Albumin 3.8 08/08/23 12:00: Glucometer 123 08/08/23 16:30: Glucometer 100 08/08/23 20:22: Glucometer 96 08/09/23 05:14: White Blood Count 7.8, Red Blood Count 4.75, Hemoglobin 13.1, Hematocrit 42, Mean Corpuscular Volume 87, Mean Corpuscular Hemoglobin 28, Mean Corpuscular Hemoglobin Concent 32, Red Cell Distribution Width 14.8, Platelet Count 201, Mean Platelet Volume 10.4, Immature Granulocyte % (Auto) 1, Neutrophils (%) (Auto) 67, Lymphocytes (%) (Auto) 21, Monocytes (%) (Auto) 9, Eosinophils (%) (Auto) 2, Basophils (%) (Auto) 1, Neutrophils # (Auto) 5.2, Lymphocytes # (Auto) 1.6, Monocytes # (Auto) 0.7, Eosinophils # (Auto) 0.2, Basophils # (Auto) 0.1, Immature Granulocyte # (Auto) 0.1, Sodium Level 137, Potassium Level 3.7, Chloride Level 108, Carbon Dioxide Level 18, Anion Gap 11, Blood Urea Nitrogen 10, Creatinine 0.84, Estimat Glomerular Filtration Rate 101, BUN/Creatinine Ratio 12, Glucose Level 116, Calcium Level 8.6, Corrected Calcium 8.8, Total Bi lirubin 0.7, Aspartate Amino Transf (AST/SGOT) 17, Alanine Aminotransferase (ALT/SGPT) 23, Alkaline Phosphatase 39, Total Protein 5.9, Albumin 3.8 08/09/23 10:37: Glucometer 103 Discharge Home Medications: Active Scripts Active Clopidogrel (Clopidogrel Bisulfate) 75 Mg Tablet 75 Mg PO DAILY [address] Maher approves to restart Aspirin EC (Aspirin) 81 Mg Tablet. 81 Mg PO DAILY [address] Maher approves to restart Reported [place] ([place]-3 Acid Ethyl Esters) 1 Gram Capsule 2 Gm PO BID TAKES 2 (1GM) CAPS Tylenol Extra Strength (Acetaminophen) 500 Mg Tablet 1,000 Mg PO Q8H PRN Nitroglycerin 0.4 Mg Tab.subl 0.4 Mg SL UD PRN Pantoprazole Sodium 40 Mg Tablet. 40 Mg PO DAILY Amphetamine Salts 10 mg Tablet (Dextroamphetamine/Amphetamine) 10 Mg Tablet 10 Mg PO 0900,1300 Metformin HCl 1,000 Mg Tablet 1,000 Mg PO BID Lisinopril 20 Mg Tablet 20 Mg PO HS Trulicity (Dulaglutide) 1.5 Mg/0.5 Ml Pen.injctr 1.5 Mg SQ SUN Spironolactone 25 Mg Tablet 25 Mg PO DAILY Modafinil 200 Mg Tablet 200 Mg PO DAILY Jardiance (Empagliflozin) 25 Mg Tablet 25 Mg PO DAILY Carvedilol 25 Mg Tablet 25 Mg PO BID Atorvastatin Calcium 80 Mg Tablet 80 Mg PO HS Instructions to patient/family Please see electronic discharge instructions given to patient. Diagnosis/Problems Diagnosis/Problems (1) GI bleed (2) Hx of colonic polyps Clinical Quality Measures DVT/VTE Risk/Contraindication: Contraindications-Pharm: Other *list below* Other: LUCY LOTT DO Aug 09, 2023 12:13
== END 2023-08-09 12:12 | disposition home or self-care (01) ==
LOC: EDUNIT# 17:20 → ER 17:22 → ICU 22:25 → UNDOADMOB 22:25 → ICU 22:45 → 4TH 08-07 13:25 → ICU 08-07 13:25 → UNDODISOB 08-09 12:12
PROVIDERS: ADMIT Internal Medicine; ATTEND Internal Medicine
DX: K91.840 Postprocedural hemorrhage of a digestive system organ or structure following a digestive system procedure (principal); D62 Acute posthemorrhagic anemia; L59.8 Other specified disorders of the skin and subcutaneous tissue related to radiation; I10 Essential (primary) hypertension; E78.5 Hyperlipidemia, unspecified; I25.10 Atherosclerotic heart disease of native coronary artery without angina pectoris; I25.2 Old myocardial infarction; K21.9 Gastro-esophageal reflux disease without esophagitis; E11.9 Type 2 diabetes mellitus without complications; E78.1 Pure hyperglyceridemia; G47.33 Obstructive sleep apnea (adult) (pediatric); Z79.01 Long term (current) use of anticoagulants; Z79.899 Other long term (current) drug therapy; Z86.010 Personal history of colon polyps; Z87.891 Personal history of nicotine dependence; Z79.82 Long term (current) use of aspirin; Z99.81 Dependence on supplemental oxygen; Z92.3 Personal history of irradiation; Z79.84 Long term (current) use of oral hypoglycemic drugs
CPT/HCPCS: 36415; 74177; 80053; 81000; 82947; 83735; 85025; 85610; 85730; 86850; 86900; 86901; 93041; 96360; 96361; G0378